=== PATIENT | female | born 1955 | race Caucasian/White ===

== ENCOUNTER → 2018-09-26 10:38 | Outpatient (CLI) | payer OTHER, SELFPAY ==
--- NOTE | 2018-09-26 10:42 | RAD_ITS ---
STUDY: X-RAY CHEST REASON FOR EXAM: Female, 62 years old. Posttussive emesis TECHNIQUE: PA and lateral views of the chest. COMPARISON: None. FINDINGS: The lungs are clear and expanded. There is no demonstrated pleural abnormality. Normal size heart. Normal mediastinum and jacqui. Normal visualized pulmonary arteries. There is atherosclerotic calcification of the aortic arch with tortuosity. Normal visualized thoracic spine. Normal visualized ribs, clavicles, and shoulders. There is no demonstrated abnormality of the visualized soft tissue structures of the upper abdomen. RAD/Chest PA and Lateral IMPRESSION: No acute cardiopulmonary process. Electronically Signed: Tiago Thomas MD at 16:19 EST , Service support ,
--- OUTSIDE RECORDS SUMMARY | 2018-11-12 01:45 | XMS RPT_ITS ---
:1955 Author Organization [facility] Care Team Providers Name Role Phone Judah Gao Attending Unavailable Judah Gao Referring Unavailable Judah Hand Primary Care Unavailable PROBLEMS PROBLEMS DATE TYPE CONDITION / CODE ATTENDING STATUS SOURCE 09/26/2018 Unknown R11.10 - Judah Gao Active Ana Vomiting, E Community unspecified / Hospital R11.10(ICD-10) Repository PROCEDURES PROCEDURES No Procedure Records FoundRESULTS RESULTS CHEST PA AND LATERAL Observed: 09/26/2018 Status: F Source: ANA 10:42 AM [facility] [place] [place] REPOS[facility]ORY [facility] Imaging Services [address] [place] [address] Chest PA and Lateral MR#: [id number] Acct: [id number] Name: EDY CLEARY Rep #: [id number] : 1955 F 62 From: Tiago Thomas MD PCP: Judah Hand MD Status: REG CLI Study: Chest PA and Lateral Date of Exam: 09/26/18 Exam# [id number] Ordering Dr: Judah Gao MD STUDY: X-RAY CHEST REASON FOR EXAM: Female, 62 years old. Posttussive emesis TECHNIQUE: PA and lateral views of the chest. COMPARISON: None. FINDINGS: The lungs are clear and expanded. There is no demonstrated pleural abnormality. Normal size heart. Normal mediastinum and jacqui. Normal visualized pulmonary arteries. There is atherosclerotic calcification of the aortic arch with tortuosity. Normal visualized thoracic spine. Normal visualized ribs, clavicles, and shoulders. There is no demonstrated abnormality of the visualized soft tissue structures of the upper abdomen. RAD/Chest PA and Lateral IMPRESSION: No acute cardiopulmonary process. Electronically Signed: Tiago Thomas MD at 16:19 EST , Service support , CC: Judah Gao MD; Judah Hand MD Director Software: Signed ALLERGIES ALLERGIES No Allergies Records FoundENCOUNTERS ENCOUNTERS ADMIT/DISCHARGE ACCOUNT ADMITTING ENCOUNTER LOCATION SOURCE NUMBER CLASS 09/26/2018 [id number] Ambulatory Ana Ana 0 [facility] ing:MTRAD Repository PAYERS PAYERS ENCOUNTER GUARANTOR PAYER SUBSCRIBER SOURCE 09/26/2018 MALACHI CLEARY Primary MALACHI Lamb Jr.[address] Insurance:Yovana Ewing: [facility] Number: [id number] [address]Lrl: ([phone] [id number] Repository [phone] () Date:[id number] [address] [place] [id number]: 09/26/2018 Secondary NOT GIVENUNK [place] Insurance:SELF PAY [facility] Number: Effective Repository Date:2018-09-26
== END ==
PROVIDERS: Family Provider Family Medicine; PCP Family Medicine; Referring Provider Family Medicine; Visit Provider Family Medicine
DX: R11.10 Vomiting, unspecified (principal)
CPT/HCPCS: 71046

== ENCOUNTER → 2019-08-13 | Outpatient (CLI) | payer OTHER, SELFPAY | END | disposition home or self-care (01) | PROVIDERS: Family Provider Family Medicine; PCP Family Medicine; Referring Provider Family Medicine; Visit Provider Family Medicine | DX: Z01.419 Encounter for gynecological examination (general) (routine) without abnormal findings (principal) ==

== ENCOUNTER → 2020-01-12 | Outpatient (CLI) | payer OTHER, SELFPAY ==
--- NOTE | 2020-01-12 11:23 | RAD_ITS ---
STUDY: X-RAY CHEST REASON FOR EXAM: Female, 64 years old. Cough TECHNIQUE: PA and lateral views of the chest. COMPARISON: Comparison is made with prior study dated September 26, 2018. FINDINGS: Hyperinflation. Scattered calcified granulomas. There is no demonstrated pleural abnormality. Normal size heart. Normal mediastinum and jacqui. Normal visualized pulmonary arteries. There is atherosclerotic tortuosity of the aortic arch and descending thoracic aorta. There are degenerative changes of the visualized thoracic spine. Normal visualized ribs, clavicles, and shoulders. There is no demonstrated abnormality of the visualized soft tissue structures of the upper abdomen. RAD/Chest PA and Lateral IMPRESSION: Hyperinflation. The lungs are clear. Electronically Signed: Allan Bailey, at 13:15 EDT , Service support ,
== END | disposition home or self-care (01) ==
LOC: MTRAD 11:21
PROVIDERS: PCP Family Medicine; Referring Provider Family Medicine; Visit Provider Family Medicine
DX: R05 Cough (principal)
CPT/HCPCS: 71046

== ENCOUNTER → 2020-04-25 | Outpatient (CLI) | payer OTHER, SELFPAY | END | disposition home or self-care (01) | LOC: MFPLAB 15:22 → LABSPEC 15:24 | PROVIDERS: PCP Family Medicine; Referring Provider Family Medicine; Visit Provider Family Medicine | DX: N39.0 Urinary tract infection, site not specified (principal) | CPT/HCPCS: 87086; 87088; 87186 ==

== ENCOUNTER → 2020-05-09 | Outpatient (CLI) | payer OTHER, SELFPAY ==
[2020-05-09 12:51] LABS: Thyroid Stim Hormone (TSH) 3.29 uIU/mL (0.358-3.74)
== END | disposition home or self-care (01) ==
PROVIDERS: PCP Family Medicine; Referring Provider Family Medicine; Visit Provider Family Medicine
DX: L65.9 Nonscarring hair loss, unspecified (principal)
CPT/HCPCS: 36415; 84443; 84481

== ENCOUNTER → 2020-08-04 | Outpatient (CLI) | payer OTHER, SELFPAY ==
--- NOTE | 2020-08-04 08:10 | BI_ITS ---
MAMMOGRAPHY - BILATERAL SCREENING REASON FOR EXAM: Female, 64 years old. Routine annual screening examination. PERTINENT HISTORY: Non-contributory. TECHNIQUE: Digital bilateral breast sophie (3D mammographic acquisition) in the CC and MLO projections. 2-D mediolateral oblique (MLO) and craniocaudad (CC) views of both breasts were obtained. CAD: Full Field Digital Mammography with Computer Added Detection was performed. COMPARISON: None. Baseline examination. FINDINGS: Breast Composition: There are scattered areas of fibroglandular density. There are no dominant masses or suspicious calcifications. No other significant abnormalities are identified. BI/SCREEN MAMM (CAD) W/SOPHIE BILAT IMPRESSION: Negative screening mammogram. Yearly followup mammogram recommended. (A) ASSESSMENT CATEGORY: BIRADS Category 1: Negative. A letter regarding these results will be sent to the patient by the facility within 30 days. Approximately 10% of breast cancers are not detected by mammography. A normal mammogram should not delay biopsy of a clinically suspicious abnormality. [id number] Electronically Signed: Allan Bailey, at 10:25 EDT , Service support ,
== END | disposition home or self-care (01) ==
LOC: OPBI 08:09
PROVIDERS: PCP Family Medicine; Referring Provider Family Medicine; Visit Provider Family Medicine
DX: Z12.31 Encounter for screening mammogram for malignant neoplasm of breast (principal)
CPT/HCPCS: 77063; 77067

== ENCOUNTER → 2020-10-04 | Outpatient (CLI) | payer OTHER, SELFPAY | END | disposition home or self-care (01) | LOC: LABSPEC 11:25 | PROVIDERS: PCP Family Medicine; Referring Provider Family Medicine; Visit Provider Family Medicine | DX: N39.0 Urinary tract infection, site not specified (principal) | CPT/HCPCS: 87077; 87086; 87088; 87186 ==

== ENCOUNTER → 2021-04-18 09:19 | Outpatient (CLI) | payer OTHER, SELFPAY ==
--- NOTE | 2021-04-18 09:23 | RAD_ITS ---
STUDY: X-RAY CHEST REASON FOR EXAM: Female, 65 years old. ACUTE BRONCHITIS TECHNIQUE: PA and lateral views of the chest. COMPARISON: Comparison is made with prior study dated 01/12/2020. FINDINGS: Hyperinflation. Scattered calcified granulomas. There is no demonstrated pleural abnormality. Normal size heart. Normal mediastinum and jacqui. Normal visualized pulmonary arteries. There is atherosclerotic tortuosity of the aortic arch and descending thoracic aorta. There are degenerative changes of the visualized thoracic spine. Normal visualized ribs, clavicles, and shoulders. There is no demonstrated abnormality of the visualized soft tissue structures of the upper abdomen. RAD/Chest PA and Lateral IMPRESSION: Hyperinflation. The lungs are clear. Electronically Signed: Allan Bailey MD at 13:05 EDT , Service support ,
== END ==
PROVIDERS: PCP Family Medicine; Referring Provider Family Medicine; Visit Provider Family Medicine
DX: J20.9 Acute bronchitis, unspecified (principal)
CPT/HCPCS: 71046

== ENCOUNTER → 2021-05-23 11:38 | Outpatient (CLI) | payer OTHER, SELFPAY ==
--- NOTE | 2021-05-23 13:00 | SP.MBSS_ITS ---
Modified Barium Swallow - Patient Information Study Date: 05/23/21 Study Time: 12:00 Direct Billable Minutes: 90 Total Minutes procedure & reportin Diagnosis: Dysphagia, unspecified (R13.10) Referring Physician: Judah Gao Reason for Referral: Objectively assess for swallow dysfunction and aspiration risk. Medical History: The patient is a 65 year old female with PMH including chronic bronchitis, COVID-19, asthma, and symptoms of reflux who was referred by her doctor for MBS study to further assess swallow function. The patient reports that she will occasionally have sensation of pharyngeal stasis after the swallow, especially with adhesive textures such as peanut butter. She also reports occasional coughing with food and drink. She has been reporting globus sensation and belching after intake, giving her concerns for acid reflux. Current Diet Ordered: Regular / Thin Dentition: Natural Teeth Mental Status: WNL Respiratory Status: Oxygenating on Room Air - Penetration-Aspiration Scale Penetration-Aspiration Scale: OBJECTIVE ASSESSMENT OF SWALLOW FUNCTION (QUANTITATIVE ? PER TRIAL): PENETRATION / ASPIRATION SCALE (BURDICK): 1 = does not enter airway 2 = enters airway/above vocal folds/ejected 3 = enters airway/above vocal folds/not ejected 4 = enters airway/contacts vocal folds/ejected 5 = enters airway/contacts vocal folds/not ejected 6 = enters airway/below vocal folds/ejected 7 = enters airway/below vocal folds/not ejected despite effort 8 = enters airway/below vocal folds/no effort VIDEOFLOROSCOPIC SCALE SCORE (BURDICK): Grade I = aspiration of material that has penetrated into the laryngeal vestibule, intact cough reflex Grade II = aspiration < 10 % of the bolus, intact cough reflex Grade III = aspiration of < 10 % of the bolus, reduced cough reflex or aspiration of > 10 % of the bolus, intact cough reflex Grade IV = aspiration of > 10 % of the bolus, reduced cough reflex - Penetration-Aspiration Scale Score Thin Liquid via teaspoon Result: 2= enter airway/above vocal folds/ejected Thin Liquid via teaspoon Trial 2 Result: 1= does not enter airway Thin Liquid via small single sip from cup Result: 1= does not enter airway Thin Liquid via sequential sips from cup Result: 2= enter airway/above vocal folds/ejected [place] Thick Liquid via small single sip from cup Result: 1= does not enter airway Honey Thick Liquid via small single sip from cup Result: 1= does not enter airway Pudding Result: 1= does not enter airway Cookie Result: 1= does not enter airway Thin Liquid via single sip from straw Result: 1= does not enter airway Thin Liquid via sequential sips from straw Result: 2= enter airway/above vocal folds/ejected Thin Liquid via small single sip from cup Trial 2 Result: 1= does not enter airway - Oral Phase Labial Seal: No Labial Escape Tongue Control During Bolus Hold: Posterior escape of less than half of bolus Bolus Preparation/Mastication: Timely and efficient chewing and mashing Bolus Transport/Lingual Motion: Delayed initiation of tongue motion Oral Residue: Residue collection on oral structures - Noted primarily with large continuous sips. Piecemeal deglutition with pudding and cookie independently cleared with second swallow. - Pharyngeal Phase Initiation of Pharyngeal Swallow: Bolus head in pyriforms Soft Palate Elevation: No bolus between soft palate and pharyngeal wall Laryngeal Elevation: Partial superior movement thyroid cart/partial apprx aryt- epig petiole Anterior Hyoid Excursion: Complete anterior movement Epiglottic Movement: Complete inversion Laryngeal Vestibule Closure at Height of Swallow: Incomplete; narrow column of air/contrast in laryngeal vestibule Pharyngeal Stripping Wave: Present - complete Pharyngoesophageal Segment Opening: Parital distension and partial duration; parital obstruction of flow Tongue Base Retraction: Narrow column of contrast between tongue base & post. pharyngeal wall Pharyngeal Residue: Collection of residue within or on pharyngeal structures - Primarily observed with continuous sips. - Esophageal Phase Esophageal Clearance: Esophageal retention w/ retrograde flow below pharyngoesophageal seg. - Treatment Strategies Effects of treatment strategies attemped:: Decreased bolus rate = Effective. - Diagnosis/Impression Diagnosis: Swallow function grossly WNL. Impression: Overall, the patient presents with a functional oropharyngeal swallow. She did present with mild deficits in bolus control with premature anterior spillage, primarily observed with thin liquid trials. She had delays initiating the pharyngeal phase of the swallow with the bolus head of thin liquids in the pyriforms. She had penetration of thin liquids trials into the laryngeal vestibule above the vocal folds with full ejection of continuous sips of thin liquids via cup and straw. She also had increased pharyngeal residue with continuous sips, which she independently cleared with a second swallow. The patient benefited from use of single sips, one at a time. The patient was observed to have significant retrograde flow of pudding and cookie contrast, which remained below the upper esophageal sphincter during the evaluation. Concerns for acid reflux due to extent of retrograde flow observed with small trials of tsp of pudding and 1/2 Xenia Doone shortbread cookie. - Recommendations Diet: Regular Textures, Thin Liquids Compensatory Strategies: Small Bites, Small Sips, Slow Rate - Sips one at a time., Sitting upright, Remain sitting upright for 30 minutes after PO intake - 60 minutes after intake. 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 Education Completed: 1. Described result of evaluation., 5. Patient demonstrates recommended strategies., 6. Family/caregivers demonstrate recommended strategies. - Status Active ST Patient: Active - Contact Information [facility] Speech Therapy:: Bianca Bray M.A. [facility]PASSEN[facility] SERVICE REPRESENTATIVE Speech-Language Pathologist [facility] [address] [place] [address] [email or web address] [phone] 05/23/21 13:20
== END ==
PROVIDERS: PCP Family Medicine; Referring Provider Family Medicine; Visit Provider Family Medicine
DX: R13.10 Dysphagia, unspecified (principal)
CPT/HCPCS: 74230; 92611

== ENCOUNTER → 2021-08-09 08:13 | Outpatient (CLI) | payer OTHER, SELFPAY ==
--- NOTE | 2021-08-09 08:14 | BI_ITS ---
MAMMOGRAPHY - BILATERAL SCREENING REASON FOR EXAM: Female, 65 years old. Routine annual screening examination. PERTINENT HISTORY: Non-contributory. TECHNIQUE: Digital bilateral breast sophie (3D mammographic acquisition) in the CC and MLO projections. 2-D mediolateral oblique (MLO) and craniocaudad (CC) views of both breasts were obtained. CAD: Full Field Digital Mammography with Computer Added Detection was performed. COMPARISON: Comparison is made with prior study 08/04/2020. FINDINGS: Breast Composition: There are scattered areas of fibroglandular density. There are no dominant masses or suspicious calcifications. No other significant abnormalities are identified. There has been no significant change since the prior study. BI/SCRN MAMM (CAD)W/SOPHIE BILAT IMPRESSION: Stable bilateral screening mammogram. Yearly follow-up mammogram recommended. (A) ASSESSMENT CATEGORY: BIRADS Category 1: Negative. A letter regarding these results will be sent to the patient by the facility within 30 days. Approximately 10% of breast cancers are not detected by mammography. A normal mammogram should not delay biopsy of a clinically suspicious abnormality. [id number] Electronically Signed: Allan Bailey MD at 12:25 EDT , Service support ,
== END ==
PROVIDERS: PCP Family Medicine; Referring Provider Family Medicine; Visit Provider Family Medicine
DX: Z12.31 Encounter for screening mammogram for malignant neoplasm of breast (principal)
CPT/HCPCS: 77063; 77067

== ENCOUNTER → 2022-06-01 | Outpatient (CLI) | payer OTHER, SELFPAY ==
--- NOTE | 2022-06-01 09:05 | RAD_ITS ---
STUDY: X-RAY - SOFT TISSUE NECK REASON FOR EXAM: Female, 66 years old. Neck pain TECHNIQUE: 2 view(s) of the neck were obtained. COMPARISON: None. FINDINGS: Normal visualized nasopharynx, oropharynx, hypopharynx. Normal epiglottis. Normal visualized subglottic tracheal air column. Normal prevertebral soft tissue structures. There are degenerative changes of the cervical spine more prominent at the C5-C6 and C6-7 levels. Loss of the normal cervical lordosis. The soft tissue structures are unremarkable. There are atherosclerotic calcifications of the left carotid bifurcation. RAD/Neck for Soft Tissue IMPRESSION: Straightening of the normal cervical lordosis with the disc space narrowing and spondylosis at the C5-C6 and C6-C7 levels. Atherosclerotic plaque formation at the bifurcation of the left carotid artery. Electronically Signed: Allan Bailey MD at 10:48 EDT ,
== END | disposition home or self-care (01) ==
PROVIDERS: PCP Family Medicine; Referring Provider Nurse Practitioner Family; Visit Provider Nurse Practitioner Family
DX: M54.2 Cervicalgia (principal)
CPT/HCPCS: 70360

== ENCOUNTER → 2022-08-10 | Outpatient (CLI) | payer OTHER, SELFPAY ==
--- NOTE | 2022-08-10 08:59 | BI_ITS ---
MAMMOGRAPHY - BILATERAL SCREENING REASON FOR EXAM: Female, 66 years old. Routine annual screening examination. PERTINENT HISTORY: Non-contributory. TECHNIQUE: Digital bilateral breast princess (3D mammographic acquisition) in the CC and MLO projections. 2-D mediolateral oblique (MLO) and craniocaudad (CC) views of both breasts were obtained. CAD: Full Field Digital Mammography with Computer Added Detection was performed. COMPARISON: Comparison is made with prior study 08/09/2021 and 08/04/2020. FINDINGS: Breast Composition: There are scattered areas of fibroglandular density. There are no dominant masses or suspicious calcifications. No other significant abnormalities are identified. There has been no significant change since the prior study. BI/SCREENING MAMM (CAD), BILAT IMPRESSION: Stable bilateral screening mammogram. Yearly follow-up mammogram recommended. (A) ASSESSMENT CATEGORY: BIRADS Category 1: Negative. A letter regarding these results will be sent to the patient by the facility within 30 days. Approximately 10% of breast cancers are not detected by mammography. A normal mammogram should not delay biopsy of a clinically suspicious abnormality. [id number] Electronically Signed: Allan Bailey MD at 10:10 EDT ,
== END | disposition home or self-care (01) ==
LOC: OPBI 08:58
PROVIDERS: PCP Family Medicine; Referring Provider Family Medicine; Visit Provider Family Medicine
DX: Z12.31 Encounter for screening mammogram for malignant neoplasm of breast (principal)
CPT/HCPCS: 77067

== ENCOUNTER → 2022-09-26 | Outpatient (CLI) | payer OTHER, SELFPAY ==
[2022-10-04 16:20] LABS: HPV APTIMA, High Risk Negative (Negative)
[2022-10-04 16:21] LABS: HPV Reflexed? YES, CHARGE PATIENT
== END | disposition home or self-care (01) ==
LOC: LABSPEC 09:56
PROVIDERS: PCP Family Medicine; Visit Provider Family Medicine
DX: Z12.4 Encounter for screening for malignant neoplasm of cervix (principal)
CPT/HCPCS: 87624; 88175; G0145

== ENCOUNTER → 2022-09-28 | Outpatient (CLI) | payer OTHER, SELFPAY ==
--- NOTE | 2022-09-28 18:03 | US_ITS ---
EXAM: US PELVIS TRANSABDOMINAL AND TRANSVAGINAL, COMPLETE CLINICAL INDICATION: hypertroph TECHNIQUE: Transabdominal and transvaginal pelvic ultrasound was performed with grayscale and color Doppler imaging. Transvaginal imaging was used for better evaluation of the endometrium and adnexa. This report was created using [employer] report generation technology. COMPARISON: None. FINDINGS: UTERUS/CERVIX: Calcifications of the fundal uterine periphery without focal lesion. Uterus measures 6.4 x 6 x 3.2 cm with endometrial thickness of 2 mm. Uterus is retroflexed. Simple fluid distended endometrial complex. No focal lesions or fibroids. RIGHT OVARY: Right ovary demonstrates blood flow to it measuring 2.0 x 1.5 x 1.2 cm. No ovarian masses or right adnexal masses. Left ovary measures 2.0 x 1.1 x 1.2 cm with no ovarian masses. No left adnexal masses. LEFT OVARY: See above. FREE FLUID: None. BLADDER: Urinary bladder has a volume 645 mL with no wall thickening or intraluminal abnormalities. US/Pelvic (Non ) IMPRESSION: 1. Small amount of simple fluid in the endometrial complex without endometrial complex thickening. This is likely benign and expected to progress over time. Could consider follow-up in 6-8 weeks to document stability. 2. Normal ovaries with no adnexal masses or free fluid. Electronically Signed: Frankie Jacobson MD at 21:23 EST ,
== END | disposition home or self-care (01) ==
LOC: US 17:58
PROVIDERS: PCP Family Medicine; Referring Provider Family Medicine; Visit Provider Family Medicine
DX: N85.2 Hypertrophy of uterus (principal)
CPT/HCPCS: 76830; 76856

== ENCOUNTER → 2023-01-22 | Outpatient (CLI) | payer OTHER, SELFPAY ==
--- NOTE | 2023-01-22 08:22 | US_ITS ---
STUDY: ULTRASOUND OF THE FEMALE PELVIS - COMPLETE REASON FOR EXAM: Female, 67 years old. endometrial fluid TECHNIQUE: Endovaginal. Transvaginal US was obtained to better visualized the ovaries. COMPARISON: 09.28.22. FINDINGS: The uterus is anteverted and is tilted to the left side of the pelvis. The uterus measures 6.7x5.3 cm. Normal uterine cervix. The endometrium measures 6mm in thickness, and is fluid distended. There is no demonstrated endometrial mass. There is calcification in the myometrial region posteriorly. I.U.D. - The patient does not have an I.U.D. The right ovary is visualized. The right ovary measures 1.9x1.5 cm. There is no right ovarian cyst or ovarian mass. There is no visualized right adnexal mass or complex lesion. There is normal arterial and normal venous vascularity. The left ovary is visualized. The left ovary measures 1.1x.8 cm. There is no left ovarian cyst or ovarian mass. There is no visualized left adnexal mass or complex lesion. There is normal arterial and normal venous vascularity. There is no fluid in the cul-de-sac. Urinary bladder volume is (in cc) 82. US/Pelvic w/ Transvaginal IMPRESSION: There is endometrial thickening. This is abnormal for the patient''s age if she is postmenopausal. Direct visualization is recommended to exclude an underlying mass. This is a persistent finding. Electronically Signed: Guillermo Villatoro MD at 16:47 EDT ,
== END | disposition home or self-care (01) ==
PROVIDERS: PCP Family Medicine; Referring Provider Nurse Practitioner Women's Health; Visit Provider Nurse Practitioner Women's Health
DX: R93.89 Abnormal findings on diagnostic imaging of other specified body structures (principal); Z78.0 Asymptomatic menopausal state
CPT/HCPCS: 76830; 76856

== ENCOUNTER → 2023-01-28 | Outpatient (CLI) | payer OTHER, SELFPAY ==
--- NOTE | 2023-01-28 13:25 | EMB_PTH ---
PATIENT: EDY CLEARY LOC: [facility] U#:[id number] AGE/SX: 67/F ROOM: RE01/28/[address]: BARBY Allen : 1955 BED: DIS: 01/28/2023 SPEC #: [id number] RECD: 01/28/23 15:17 STATUS: KEILY REFiona #: [id number] RORY: 01/28/23 13:[address]: Bella Jones NP DEPT: SURGICAL PATHOLOGY RECD BY: Rubina Olson ENTERED: 01/29/23 09:29 SP TYPE: ENDOM BX/C KRISTIN DR: Dr. Judah Gao MD Tissues: Endometrium, NOS Procedures: Surgery Specimen Level IV HEADER OPERATION: Endometrial biopsy PRE-OP DIAGNOSIS: Thickened endometrium TISSUE SUBMITTED: Endometrial tissue MICROSCOPIC DIAGNOSIS Endometrium, biopsy: Rare strips of benign superficial glandular mucosa with focal squamous metaplasia. See comment. AM:stacy 01/30/2023 COMMENT The specimen primarily consists of mucoid material. Clinical correlation is suggested. MICROSCOPIC DESCRIPTION Slides are reviewed. GROSS DESCRIPTION Received is one container labeled with the patient's name and not further designated. The specimen consists of multiple irregular fragments of mar mucoid tissue that in aggregate measure 2.0 x 1.5 x 0.1 cm. The specimen is totally submitted in one cassette. / SJ:stacy 01/29/2023 TC:5 CPT: [id number]
== END | disposition home or self-care (01) ==
LOC: LABSPEC 15:48
PROVIDERS: PCP Family Medicine; Referring Provider Nurse Practitioner Women's Health; Visit Provider Nurse Practitioner Women's Health
DX: N85.8 Other specified noninflammatory disorders of uterus (principal)
CPT/HCPCS: 88305

== ENCOUNTER → 2023-03-21 | Outpatient (CLI) | payer OTHER, SELFPAY | END | disposition home or self-care (01) | LOC: LABSPEC 11:23 | PROVIDERS: PCP Family Medicine; Referring Provider Internal Medicine Pulmonary Disease; Visit Provider Internal Medicine Pulmonary Disease | DX: R05.9 Cough, unspecified (principal) | CPT/HCPCS: 87070; 87205 ==

== ENCOUNTER → 2023-05-07 | Outpatient (CLI) | payer OTHER, SELFPAY ==
[2023-05-07 10:09] LABS: Absolute Lymphocyte Count 1.68 X10^3/uL (0.83-4.51); Absolute Neutrophil Count 2.5 X10^3/uL (2.0-7.7); Basophil# 0.08 X10^3/uL; Basophil% 1.5 % (0-1); Eosinophil# 0.63 X10^3/uL; Eosinophils% 11.7 % (0-5); Hematocrit 43.9 % (37-47); Hemoglobin 13.9 g/dL (12.0-15.0); Lymphocyte # 1.68 X10^3/ul (0.83-4.51); Lymphocyte % 31.2 % (19-41); Mean Corp Hgb Conc 31.7 g/dL (32-36); Mean Corpuscular Hgb 31.2 pg (27.0-32.0); Mean Corpuscular Volume 98.4 fL (81-99); Mean Platelet Vol. 9.5 fl (6.2-12.0); Monocyte% 9.3 % (0-10); NRBC Flagged by Analyzer 0 % (0-5); Neutrophil # 2.48 X10^3/uL (2.7-7.7); Neutrophil % 46.1 % (47-70); Platelet Count 257 K/mm3 (150-450); RBC Distribution Width CV 12.7 % (11.6-14.6); RBC Distribution Width SD 46.4 fl (35.1-43.9); Red Blood Count 4.46 M/mm3 (4.2-5.4); White Blood Count 5.4 K/mm3 (4.4-11.0)
[2023-05-07 10:10] LABS: Color, Urine Yellow (Yellow); Glucose, Dipstick Normal (Normal); Ketone-Dipstick Negative (Negative); Leukocyte Esterase-Dipstick Negative /ul (Negative); Nitrite-Dipstick Negative (Negative); Occult Blood-Urine 50 /ul (Negative); Protein-Dipstick 15 mg/dl (Negative); Urine Bilirubin Dipstick Negative (Negative); Urine Clarity Sl. Cloudy (Clear); Urine Urobilinogen Normal (Normal)
[2023-05-07 10:17] LABS: Amorphous Sediment 1+; Bacteria RARE /hpf (None Seen); Mucous, Urine RARE /hpf (<or=2+); Red Blood Cells-Urine 0-5 SEEN /hpf (0-5); Squamous Epithelial Cells - UA 0-5 SEEN /hpf (5-10); White Blood Cells 0-5 SEEN /hpf (0-5)
[2023-05-07 11:07] LABS: AST(SGOT) 16 U/L (15-37); Alanine Aminotransfer ALT/SGPT 25 U/L (13-56); Alkaline Phosphatase 84 U/L (45-117); Anion Gap 6 (5-15); BUN 12 mg/dL (7-18); BUN/Creat Ratio 15.7 RATIO (10-20); Calcium,Total 8.8 mg/dL (8.5-10.1); Chloride 107 mmol/L (98-107); Cholesterol 203 mg/dL (200); Creatinine, Serum 0.77 mg/dL (0.55-1.02); EST Glomerular Filtration Rate 80 mL/min (>60); Est Glom Filt Rate - Afr Amer 97 mL/min (>60); Globulin 4.2 g/dL (2.2-4.2); Glucose 99 mg/dL (74-106); High Density Lipoprotein 99 mg/dL; Potassium 3.7 mmol/L (3.5-5.1); Protein, Total 8.2 g/dL (6.4-8.2); Sodium Level 140 mmol/L (136-145); Thyroid Stim Hormone (TSH) 3.44 uIU/mL (0.358-3.74); Triglycerides 46 mg/dL; Very Low Density Lipoprotein 9 mg/dL (5-40)
== END | disposition home or self-care (01) ==
LOC: MTLAB 08:10
PROVIDERS: PCP Family Medicine; Referring Provider Family Medicine; Visit Provider Family Medicine
DX: I10 Essential (primary) hypertension (principal)
CPT/HCPCS: 36415; 80053; 80061; 81001; 84443; 85025

== ENCOUNTER → 2023-05-20 | Outpatient (CLI) | payer OTHER, SELFPAY ==
--- NOTE | 2023-05-20 08:28 | US_ITS ---
STUDY: ULTRASOUND OF THE FEMALE PELVIS - COMPLETE REASON FOR EXAM: Female, 67 years old. fluid in endometrial cavity LMP: Menopause TECHNIQUE: Transabdominal and Transvaginal TECHNICAL QUALITY: Adequate. COMPARISON: 01/22/2023 FINDINGS: The uterus is anteverted and is in a midline position. The uterus measures 5.9 x 4.4 x 2.8 cm. Normal uterine cervix. The endometrium measures 4 mm in thickness, and is fluid distended. There is no demonstrated endometrial mass. 2 cm round isoechoic mass in the posterior body uterus consistent with an intramural fibroid. I.U.D. - The patient does not have an I.U.D. The right ovary is visualized. The right ovary measures 2.1 x 2.3 x 1.7 cm. There is no right ovarian cyst or ovarian mass. There is no visualized right adnexal mass or complex lesion. There is normal arterial and normal venous vascularity. The left ovary is visualized. The left ovary measures 1.4 x 1.2 x 2.1 cm. There is no left ovarian cyst or ovarian mass. There is no visualized left adnexal mass or complex lesion. There is normal arterial and normal venous vascularity. There is no fluid in the cul-de-sac. The pre void volume of the bladder was ml. The post void volume of the bladder was ml. Polycystic ovary disease: No. US/Pelvic w/ Transvaginal IMPRESSION: 1. Small amount of endometrial fluid which is abnormal in a postmenopausal female. 2. 2 cm intramural fibroid. Electronically Signed: Agustin Washington MD at 23:42 EDT ,
--- NOTE | 2023-05-20 09:28 | RAD_ITS ---
STUDY: X-RAY CHEST REASON FOR EXAM: Female, 67 years old. Mild persistent asthma, uncomplicated TECHNIQUE: PA and lateral views of the chest. COMPARISON: 04/18/2021 FINDINGS: The lungs are clear and expanded. There is no demonstrated pleural abnormality. Normal size heart. Normal mediastinum and jacqui. Normal visualized pulmonary arteries. Normal visualized aortic arch and descending thoracic aorta. Normal visualized thoracic spine. Normal visualized ribs, clavicles, and shoulders. There is no demonstrated abnormality of the visualized soft tissue structures of the upper abdomen. RAD/Chest PA and Lateral IMPRESSION: Normal x-ray examination of the chest. Electronically Signed: Agustin Washington MD at 23:39 EDT ,
[2023-05-22 19:07] LABS: Cytoplasmic Ab (C-ANCA) <1:20 titer (Neg:<1:20); Immunoglobulin E 155 IU/mL (6-495)
[2023-05-23 18:08] LABS: Alternaria tenuis <0.10 kU/L (Class 0); Ash, White 0.19 kU/L (Class 0/I); Aspergillus fumigatus <0.10 kU/L (Class 0); Bermuda Grass <0.10 kU/L (Class 0); Birch <0.10 kU/L (Class 0); Black Walnut <0.10 kU/L (Class 0); Cat Hair / Dander,Stand <0.10 kU/L (Class 0); Cedar, Mountain <0.10 kU/L (Class 0); Cladosporium herbarum <0.10 kU/L (Class 0); Cockroach, American 0.43 kU/L (Class I); Cottonwood <0.10 kU/L (Class 0); D farinae Mite 2.43 kU/L (Class III); Dog Epithelia <0.10 kU/L (Class 0); Elm, American White <0.10 kU/L (Class 0); Immunoglobulin E 127 IU/mL (6-495); Maple/Box Elder <0.10 kU/L (Class 0); Mouse Urine <0.10 kU/L (Class 0); Mulberry, White <0.10 kU/L (Class 0); Oak, White <0.10 kU/L (Class 0); Pecan <0.10 kU/L (Class 0); Penicillium Notatum <0.10 kU/L (Class 0); Pigweed, Rough <0.10 kU/L (Class 0); Ragweed, Short/Common 0.12 kU/L (Class 0/I); Russian Thistle <0.10 kU/L (Class 0); Sheep Sorrel <0.10 kU/L (Class 0); Sycamore, American <0.10 kU/L (Class 0); Timothy Grass <0.10 kU/L (Class 0)
== END | disposition home or self-care (01) ==
PROVIDERS: Internal Medicine Pulmonary Disease; PCP Family Medicine; Referring Provider Nurse Practitioner Women's Health; Visit Provider Nurse Practitioner Women's Health
DX: J45.30 Mild persistent asthma, uncomplicated (principal)
CPT/HCPCS: 36415; 71046; 76830; 76856; 82785; 86003; 86256

== ENCOUNTER → 2023-07-30 | Outpatient (CLI) | payer OTHER, SELFPAY ==
[2023-07-30 08:40] LABS: Bacteria 0 SEEN /hpf (None Seen); Mucous, Urine 0 SEEN /hpf (<or=2+); White Blood Cells 0 SEEN /hpf (0-5)
[2023-07-30 10:32] LABS: Color, Urine Yellow (Yellow); Glucose, Dipstick Normal (Normal); Ketone-Dipstick 5 mg/dl (Negative); Leukocyte Esterase-Dipstick 25 /ul (Negative); Nitrite-Dipstick Negative (Negative); Occult Blood-Urine 150 /ul (Negative); Protein-Dipstick 15 mg/dl (Negative); Specific Gravity, Urine 1.015 (1.002-1.030); Urine Bilirubin Dipstick Negative (Negative); Urine Clarity Clear (Clear); Urine Urobilinogen Normal (Normal)
[2023-07-30 10:33] LABS: CRP < 2.90 mg/L (0.0-3.0)
[2023-07-30 10:37] LABS: Erythrocyte Sedimentation Rate 17 mm/hr (0-30)
[2023-07-30 10:49] LABS: Red Blood Cells-Urine 0-5 SEEN /hpf (0-5); Squamous Epithelial Cells - UA 0-5 SEEN /hpf (5-10)
== END | disposition home or self-care (01) ==
PROVIDERS: PCP Family Medicine; Referring Provider Internal Medicine Pulmonary Disease; Visit Provider Internal Medicine Pulmonary Disease
DX: J45.20 Mild intermittent asthma, uncomplicated (principal); J30.89 Other allergic rhinitis
CPT/HCPCS: 36415; 81001; 85652; 86140

== ENCOUNTER → 2023-08-14 | Outpatient (CLI) | payer OTHER, SELFPAY ==
--- NOTE | 2023-08-14 07:05 | BI_ITS ---
MAMMOGRAPHY - BILATERAL SCREENING REASON FOR EXAM: Female, 67 years old. Routine annual screening examination. PERTINENT HISTORY: Non-contributory. TECHNIQUE: Digital bilateral breast sophie (3D mammographic acquisition) in the CC and MLO projections. 2-D mediolateral oblique (MLO) and craniocaudad (CC) views of both breasts were obtained. CAD: Full Field Digital Mammography with Computer Added Detection was performed. COMPARISON: Comparison is made with prior study August 10, 2022 and August 09, 2021. FINDINGS: Breast Composition: There are scattered areas of fibroglandular density. There are no dominant masses or suspicious calcifications. No other significant abnormalities are identified. There has been no significant change since the prior study. BI/SCRN MAMM (CAD)W/SOPHIE BILAT IMPRESSION: Stable bilateral screening mammogram. Yearly follow-up mammogram recommended. (A) ASSESSMENT CATEGORY: BIRADS Category 1: Negative. A letter regarding these results will be sent to the patient by the facility within 30 days. Approximately 10% of breast cancers are not detected by mammography. A normal mammogram should not delay biopsy of a clinically suspicious abnormality. [id number] Electronically Signed: Allan Bailey MD at 8:50 EDT ,
== END | disposition home or self-care (01) ==
PROVIDERS: PCP Family Medicine; Referring Provider Family Medicine; Visit Provider Family Medicine
DX: Z12.31 Encounter for screening mammogram for malignant neoplasm of breast (principal)
CPT/HCPCS: 77063; 77067

== ENCOUNTER → 2023-10-31 | Outpatient (CLI) | payer OTHER, SELFPAY ==
--- NOTE | 2023-10-31 13:12 | RAD_ITS ---
INDICATION: ACTIVE ASTHMA EXAMINATION/TECHNIQUE: X-RAY - XR Sinuses Paranasal 3 Views COMPARISON: FINDINGS: There is no significant mucosal thickening. There are no air-fluid levels. The regional bones are grossly intact. RAD/Sinuses min 3 Views IMPRESSION: Negative sinus series. Electronically Signed: Román Colmenares DO at 18:20 EST ,
== END | disposition home or self-care (01) ==
LOC: RAD 13:05
PROVIDERS: PCP Family Medicine; Referring Provider Internal Medicine Rheumatology; Visit Provider Internal Medicine Rheumatology
DX: J45.909 Unspecified asthma, uncomplicated (principal)
CPT/HCPCS: 70220

== ENCOUNTER → 2023-11-26 | Outpatient (CLI) | payer OTHER, SELFPAY ==
--- NOTE | 2023-11-26 14:04 | CT_ITS ---
STUDY: CT CHEST WITHOUT CONTRAST REASON FOR EXAM: Female, 67 old. Asthma. Hypertension. RADIATION DOSAGE (If Supplied By Facility): CTDIvol = ( 7.46 ) mGy, DLP = ( 297.46 ) mGycm TECHNIQUE: Transaxial imaging was performed without the administration of intravenous contrast material. Individualized dose optimization techniques were used for this CT. COMPARISON: Comparison is made with prior chest radiograph dated May 20, 2023. FINDINGS: CHEST Calcified granuloma in the left lower lobe. There is no demonstrated pleural abnormality. There are calcifications of the coronary arteries. Calcified subcarinal lymph nodes. Calcified right hilar lymph nodes. Normal unenhanced pulmonary arteries. There is atherosclerotic calcification of the aortic arch. There are mild degenerative changes of the thoracic spine. There is no demonstrated abnormality of the visualized upper abdomen. CT/Chest without Contrast IMPRESSION: No acute abnormality is seen. Coronary artery calcification. Electronically Signed: Allan Bailey MD at 15:20 EST ,
--- OUTSIDE RECORDS SUMMARY | 2023-11-26 18:51 | XMS RPT_ITS | CCD ---
Author Name Unknown Address [address] [place] [address] Organization [facility] Care Team Providers Care Donor Services Manager Name Role Phone Marlena Ahn Curry Unavailable Augusto Otoole Unavailable Farooq Edge MD Primary Care Provider DYLAN QUINTERO Referring Unavailable FAROOQ EDGE Primary Care Unavailable DYLAN QUINTERO Referring Unavailable FAROOQ EDGE Primary Care Unavailable DYLAN QUINTERO Attending Unavailable Allergies Allergy Classification Reported Allergen(s) Allergy Type Date of Onset Reaction(s) Facility (3 sources) montelukast; Translations: [MONTELUKAST] Drug Allergy 11-25-2023 Mental Status Change [facility] Medications Completed/Discontinued Medications Medication Drug Class(es) Dates Sig (Normalized) Sig (Original) amLODIPine 10 mg oral tablet (2 sources) Dihydropyridine Calcium Channel Tj Start: 09-24-2023 take 1 tablet by mouth once amLODIPine (NORVASC) 10 mg tablet Take 1 tablet by mouth every afternoon. 0 09/24/2023 Active Problems Problem Classification Problem Date Documented Da te Episodic/Chronic Neoplasms of unspecified nature or uncertain behavior (3 sources) Lambda light chain disease; Translations: [Monoclonal gammopathy] Onset: 11-25-2023 11-25-2023 Chronic Results Test Name Value Interpretation Reference Range Facil ity Vital Signs Date Time Vital Sign Value Performing Clinician Gill torres 11-25-2023 13:44-0500 Body height 175 cm Dylan Quintero DO Work Phone: [facility] 11-25-2023 13:44-0500 Body temperature 98.49 [degF] Dylan Quintero DO Work Phone: [facility] 11-25-2023 13:44-0500 Body weight 90.27 kg Dylan Quintero DO Work Phone: [facility] 11-25-2023 13:44-0500 Diastolic blood pressure 84 mm[Hg] Dylan Quintero DO Work Phone: [facility] 11-25-2023 13:44-0500 Heart rate 104 /min Dylan Quintero DO Work Phone: [facility] 11-25-2023 13:44-0500 SaO2% (BldA) [Mass fraction] 97 % Dylan Quintero DO Work Phone: [facility] 11-25-2023 13:44-0500 Systolic blood pressure 171 mm[Hg] Dylan Quintero DO Work Phone: [facility] Encounters Encounter Date Encounter Type Care Provider Facility Start: 11-25-2023 End: 11-26-2023 ambulatory DYLAN Alisson FABIAN Facility:[facility] Start: 11-25-2023 End: 11-25-2023 Subsequent hospital visit by physician Xr [facility] Zainab Glass Work Phone: Radiology Plan of Treatment Date Care Activity Detail Author Start: 08-13-2029 Urine microalbumin profile DTaP,Tdap,Td Vaccine (2 - Td or Tdap) [facility] Start: 11-25-2026 Diabetes Screening Diabetes Screenin g [facility] Start: 11-25-2023 End: 02-24-2024 KAPPA/MALAGON,FREE,SER [facility] Work Phone: Immunizations Immunization Date Immunization Notes Care Provider Jorge vega 08-13-2019 influenza virus vacc ine, unspecified formulation Dylan Quintero DO Work Phone: [facility] Payers Date Payer Category Payer Private Health Insurance [facility] UMR CHOICE PLUS [id number] 2020-Present [phone] [address] [address] [place] [address] HMO [id number] 2020 Unknown [id number] Social History Date Type Detail Facility Start: 11-25-2023 Tobacco smoking stat us NHIS Never smoked tobacco [facility] Start: 11-25-2023 Tobacco use and exposure Smokeless t obacco non-user [facility] Start: 11-25-2023 Alcohol intake Current drinke r of alcohol (finding) [facility] Start: 11-25-2023 History of Social function [facility] Start: 11-25-2023 Tobacco use panel [facility] National Score (1-10 0), lower number is lower risk 75 [facility] Start: 11-25-2023 Alcohol Comment once a year [facility] Start: 1955 Sex Assigned At Female C [facility] Start: 11-19-2023 Gender identity Identifies as female gender (finding) [facility] Progress note 11-25-2023 Note Date & Type Note Facility 11-25-2023 Note HNO ID: [id number] Author: LUPE COSTA RT(R) Service: ? Author Type: Test Driver Type: Progress Notes Filed: 11/25/2023 16:41 Note Text: Radiology Service Progress Note PATIENT NAME: Edy Smith DATE OF SERVICE: November 25, 2023 TIME: 3:59 PM PATIENT IDENTITY VERIFICATION COMPLETED USING TWO (2) IDENTIFIERS: Name and Date of confirmed by patient verbally. FALL SCREENING: Has the patient had 2 falls in the last year or 1 fall with injury or currently using an Ambulatory Assistive Device (Walker, Cane, Wheelchair, Crutches, etc.)? No PATIENT GENDER DATA: Female. status: : No status: NO. PATIENT RELEVANT IMPLANT DATA REVIEWED: Yes PATIENT PRESENTS WITH AN IMPLANTABLE OR ATTACHED SURGICAL SPECIALIST: No RADIOLOGY DEPARTMENT: General X-ray: Exam(s) Completed: Bone Survey PERIPHERAL IV DATA: Not applicable SIGNED BY: RT Wendy(R) November 25, 2023 3:59 PM [facility] History of Present illness Narrative 11-25-2023 Lupe Costa RT(R) - 11/25/2023 3:50 PM EST Note Date & Type Note Facility 11-25-2023 History of Presen t illness Narrative Radiology Service Progress Note PATIENT NAME: Edy Smith DATE OF SERVICE: November 25, 2023 TIME: 3:59 PM PATIENT IDENTITY VERIFICATION COMPLETED USING TWO (2) IDENTIFIERS: Name and Date of confirmed by patient verbally. FALL SCREENING: Has the patient had 2 falls in the last year or 1 fall with injury or currently using an Ambulatory Assistive Device (Walker, Cane, Wheelchair, Crutches, etc.)? No PATIENT GENDER DATA: Female. status: : No status: NO. PATIENT RELEVANT IMPLANT DATA REVIEWED: Yes PATIENT PRESENTS WITH AN IMPLANTABLE OR ATTACHED SURGICAL SPECIALIST: No RADIOLOGY DEPARTMENT: General X-ray: Exam(s) Completed: Bone Survey PERIPHERAL IV DATA: Not applicable SIGNED BY: RT Wendy(R) November 25, 2023 3:59 PM documented in this encounter [facility] Progress note 11-25-2023 Note Date & Type Note Facility 11-25-2023 Note HNO ID: [id number] Author: DYLAN QUINTERO, DO Service: ? Author Type: Physician Type: Progress Notes Filed: 11/25/2023 14:48 Note Text: Patient referred by Dr. Edge for monoclonal gammopathy. The impression and plan will be communicated by way of the shared electronic record or faxed under separate cover letter. 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 Evidently biopsy showed benign findings. Family h/o asthma. No childhood asthma. Started noticing wheezing about 2-3 years ago. Has long history of sinus drainage with occasional sinusitis. Seasonal allergies. Referred to Dr. Mendiola about 3 years ago. Referred to Dr. Otoole at [facility] for evaluation of abnormal test results. Dr. Otoole obtained labs--a finding of an IgG lambda monoclonal protein on 11/06/2023. A CBC showed a normal total white count with an unremarkable differential. Hemoglobin was 13.7 g/dL and the platelet count was 258,000. Eos were normal. Serum chemistries showed a serum CK of 82. A serum creatinine of 0.7 mg/dL. A GFR of 89.3 cc/min. Uric acid normal at 3.2 mg/dL. UA with microscopic analysis demonstrated no protein or glucose. Hemoglobin/blood was quantitated at 3+. Microscopic analysis showed 15-20 red blood cells and 0-5 high-powered field. White blood cells were 1-2 per high-powered field. No bacteria observed. Patient was noted to have a positive p-ANCA. Also was noted to have positive MPO. CRP and sed rate were normal. Rheumatoid factor and CCP were negative. Feels well in general. Qvar BID for about a year-- helps a lot. Hasn't needed rescue inhaler. Had Covid not requiring hospitalization about 2 years ago. First noted dark urine then--has since looked normal and has not had gross hematuria (with exception of UTIs in the past). 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 Had x-rays. Chronic neck pain due to degenerative changes. Several years ago saw chiropractor for hip pain (has since resolved). Recalls having manipulation right arm/shoulder--right thumb tip numb since. No other sensory neuropathy symptoms. Previous shingles left groin. PAST MEDICAL HISTORY Diagnosis Date Asthma Essential hypertension PAST SURGICAL HISTORY Procedure Laterality Date LIGATE FALLOPIAN TUBE 1988 ALLERGIES Allergen Reactions Singulair [Monteluk* Mental Status Change Current Outpatient Medications Medication Sig amLODIPine (NORVASC) 10 mg tablet Take 1 tablet by mouth every afternoon. QVAR REDIHALER 80 mcg/actuation inhaler Inhale 2 Puffs as instructed two times a day. No current facility-administered medications for this visit. 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 Family History Problem Relation Age of Onset Heart Mother other (cancer eye) Mother other (phlebitis) Mother Diabetes Father Arthritis Brother Colon Cancer Maternal Grandmother Diabetes Maternal Grandfather Colon Cancer Paternal Grandmother Hypertension Paternal Grandfather ROS: Constitutional: No fever. No drenching night sweats. Normal appetite. No unexplained weight loss. No significant fatigue. Neuro: No recent MURRAY, vertigo, dizziness or imbalance. HEENT: No recent change in voice, vision or hearing. Resp: See above. CVS: No exertional chest pain, PND or orthopnea. No extremity swelling/edema. No symptoms of claudication. No painful or tender varicose veins. GI: No dysphagia or odynophagia. No reflux, n/v, change in bowel habits. No abdominal pain, bloating or distension. No black or bloody stools. : See above. Endo: No hot flashes. No polyuria or polydipsia. No heat or cold intolerance. Musculoskeletal: See above. Derm: No current rash. No history of jaundice. No diffuse pruritis. Heme: No unusual bleeding and unexplained bruising. Psych: Normal mood. PHYSICAL EXAM: Vitals: Blood pressure 171/84, pulse 104, temperature 36.9 ?C (98.5 ?F), height 175 cm (5' 8.9 ), weight 90.3 kg (199 lb), SpO2 97%. Well-appearing and in no acute distress. EYES: Sclerae are anicteric bilaterally. ENT: Oral mucosa is unremarkable. There is no sign of thrush or mucositis. Tongue appears healthy. LYMPHATIC: There is no palpable cervical, supraclavicular, axillary or inguinal adenopathy. RESPIRATORY: Inspiratory breath sounds are of normal intensity in all burgos. No rales, wheezes or rhonchi CARDIOVASCULAR: Rhythm is regular. Normal intensity S1/S2. No murmur. Varicose veins b/l legs. ABDOMEN: The abdomen is nondistended. No splenomegaly (more content not included)... [facility] History of Present illness Narrative 11-25-2023 Dylan Quintero DO - 11/25/2023 1:39 PM EST Note Date & Type Note Facility 11-25-2023 History of Presen t illness Narrative Patient referred by Dr. Edge for monoclonal gammopathy. The impression and plan will be communicated by way of the shared electronic record or faxed under separate cover letter. 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 Evidently biopsy showed benign findings. Family h/o asthma. No childhood asthma. Started noticing wheezing about 2-3 years ago. Has long history of sinus drainage with occasional sinusitis. Seasonal allergies. Referred to Dr. Mendiola about 3 years ago. Referred to Dr. Otoole at [facility] for evaluation of abnormal test results. Dr. Otoole obtained labs--a finding of an IgG lambda monoclonal protein on 11/06/2023. A CBC showed a normal total white count with an unremarkable differential. Hemoglobin was 13.7 g/dL and the platelet count was 258,000. Eos were normal. Serum chemistries showed a serum CK of 82. A serum creatinine of 0.7 mg/dL. A GFR of 89.3 cc/min. Uric acid normal at 3.2 mg/dL. UA with microscopic analysis demonstrated no protein or glucose. Hemoglobin/blood was quantitated at 3+. Microscopic analysis showed 15-20 red blood cells and 0-5 high-powered field. White blood cells were 1-2 per high-powered field. No bacteria observed. Patient was noted to have a positive p-ANCA. Also was noted to have positive MPO. CRP and sed rate were normal. Rheumatoid factor and CCP were negative. Feels well in general. Qvar BID for about a year-- helps a lot. Hasn't needed rescue inhaler. Had Covid not requiring hospitalization about 2 years ago. First noted dark urine then--has since looked normal and has not had gross hematuria (with exception of UTIs in the past). 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 Had x-rays. Chronic neck pain due to degenerative changes. Several years ago saw chiropractor for hip pain (has since resolved). Recalls having manipulation right arm/shoulder--right thumb tip numb since. No other sensory neuropathy symptoms. Previous shingles left groin. PAST MEDICAL HISTORY Diagnosis Date Asthma Essential hypertension PAST SURGICAL HISTORY Procedure Laterality Date LIGATE FALLOPIAN TUBE 1988 ALLERGIES Allergen Reactions Singulair [Monteluk* Mental Status Change Current Outpatient Medications Medication Sig amLODIPine (NORVASC) 10 mg tablet Take 1 tablet by mouth every afternoon. QVAR REDIHALER 80 mcg/actuation inhaler Inhale 2 Puffs as instructed two times a day. No current facility-administered medications for this visit. 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 Family History Problem Relation Age of Onset Heart Mother other (cancer eye) Mother other (phlebitis) Mother Diabetes Father Arthritis Brother Colon Cancer Maternal Grandmother Diabetes Maternal Grandfather Colon Cancer Paternal Grandmother Hypertension Paternal Grandfather ROS: Constitutional: No fever. No drenching night sweats. Normal appetite. No unexplained weight loss. No significant fatigue. Neuro: No recent MURRAY, vertigo, dizziness or imbalance. HEENT: No recent change in voice, vision or hearing. Resp: See above. CVS: No exertional chest pain, PND or orthopnea. No extremity swelling/edema. No symptoms of claudication. No painful or tender varicose veins. GI: No dysphagia or odynophagia. No reflux, n/v, change in bowel habits. No abdominal pain, bloating or distension. No black or bloody stools. : See above. Endo: No hot flashes. No polyuria or polydipsia. No heat or cold intolerance. Musculoskeletal: See above. Derm: No current rash. No history of jaundice. No diffuse pruritis. Heme: No unusual bleeding and unexplained bruising. Psych: Normal mood. PHYSICAL EXAM: Vitals: Blood pressure 171/84, pulse 104, temperature 36.9 C (98.5 F), height 175 cm (5' 8.9 ), weight 90.3 kg (199 lb), SpO2 97%. Well-appearing and in no acute distress. EYES: Sclerae are anicteric bilaterally. ENT: Oral mucosa is unremarkable. There is no sign of thrush or mucositis. Tongue appears healthy. LYMPHATIC: There is no palpable cervical, supraclavicular, axillary or inguinal adenopathy. RESPIRATORY: Inspiratory breath sounds are of normal intensity in all burgos. No rales, wheezes or rhonchi CARDIOVASCULAR: Rhythm is regular. Normal intensity S1/S2. No murmur. Varicose veins b/l legs. ABDOMEN: The abdomen is nondistended. No splenomegaly or hepatomegaly. No tenderness. Extremities: No swelling or edema. SKIN: No jaundice. No petechiae. NEUROLOGIC: sash finisher II-XII are grossly intact. No focal motor weakness. DTRs are symmetric and normal. MUSCULOSKELETAL: No joint swelling or tenderness. No muscle wasting. ASSESSMENT/PLAN: (D47.2) IgG lambda monoclonal gammopathy (primary encounter diagnosis) Assessment: -The patient is a 67-year-old female who has been under the care of Dr. Mendiola for asthma. Recently found to have positive test for p-ANCA and MPO. Referred to Dr. Rapp who on laboratory workup found she had an IgG lambda monoclonal protein. -We discussed the spectrum of plasma cell dyscrasias and the basic workup. Plan: -CBC, CMP, serum protein electrophoresis and immunofixation, LDH, VEGF, uric acid, beta-2 microglobulin today. -24-hour urine collection for protein electrophoresis and immunofixation. -Whole-body bone survey today. -Office visit following above. I spent a total of 60 minutes on the date of the service which included preparing to see the patient, [id number] patient care, completing clinical documentation, obtaining and/or reviewing separately obtained history, performing a medically appropriate examination, counseling and educating the patient/family/caregiver, ordering medications, tests, or procedures, communicating with other HCPs (not separately reported), and communicating results to the patient/family/caregiver. Dylan Quintero DO documented in this encounter [facility] Evaluation note Note Date & Type Note Facility documented in this encounter [facility] Evaluation note Note Date & Type Note Facility documented in this encounter [facility] Reason for referral (narrative) Diagnostic Procedure Only (Routine) - Closed Note Date & Type Note Facility Referral ID Status Reason Start Date Expiration Date V isits Requested Visits Authorized [id number] Closed Auto-Generate d Referral 11/25/2023 12/24/2024 1 1 [facility] Reason for visit Narrative Diagnostic Procedure Only (Routine) - Closed Note Date & Type Note Facility Referral ID Status Reason Start Date Expiration Date V isits Requested Visits Authorized [id number] Closed Auto-Generate d Referral 11/25/2023 12/24/2024 1 1 [facility] Summary Purpose Family History No Family History Records Found Advance Directives No Advanced Directives Records Found Additional Source Comments Source Comments (unrecognize d section and content) In the event this informatio n is protected by the Federal Confidentiality of Alcohol and Drug Abuse Patient Records regulations: The Federal rules restrict any use of the information to criminally investigate or prosecute any alcohol or drug abuse patient.[facility] the event this information is protected by the Federal Confidentiality of Alcohol and Drug Abuse Patient Records regulations: The Federal rules restrict any use of the information to criminally investigate or prosecute any alcohol or drug abuse patient.[facility] Reason for Visit (unrecogniz ed section and content) Care Teams (unrecognized sec tion and content) Donor Services Manager Relationship Specialty Start Date End Date Farooq Edge MD [address] [place], [place] [address] PCP - General Family Medicine 11/25/23 Curry Mendiola V [address] [place] [address] Internal Medicine 11/25/23 Augusto Otoole [address] [place] [address] Rheumatology 11/25/23 INFORMATION SOURCE (unrecogn ized section and content) FOR RECORDS PERTAINING TO PATIENTS WHO ARE OR HAVE BEEN ENROLLED IN A CHEMICAL DEPENDENCY/SUBSTANCEABUSE PROGRAM, SOME INFORMATION MAY BE OMITTED. This clinical summary was aggregated from multiple sources. Caution should be exercised in using it in the provision of clinical care. This summary normalizes information from multiple sources, and as a consequence, information in this document may materially change the coding, format and clinical context of patient data. In addition, data may be omitted in some cases. CLINICAL DECISIONS SHOULD BE BASED ON THE PRIMARY CLINICAL RECORDS. [employer] provides no warranty or guarantee of the accuracy or completeness of information in this document.
== END | disposition home or self-care (01) ==
PROVIDERS: PCP Family Medicine; Referring Provider Internal Medicine Pulmonary Disease; Visit Provider Internal Medicine Pulmonary Disease
DX: R06.00 Dyspnea, unspecified (principal)
CPT/HCPCS: 71250

== ENCOUNTER → 2024-01-30 | Outpatient (CLI) | payer OTHER, SELFPAY ==
[2024-01-30] VITALS (15 sets, daily range): BP systolic 106–152; BP diastolic 45–74; PULSE 73–83; RESP 12–18; TEMP 36.6; O2SAT 94–100; BMI 29.5
--- NOTE | 2024-01-30 | IMM_PTH ---
PATIENT: EDY CLEARY LOC: CT U#:[id number] AGE/SX: 68/F ROOM: RE01/30/[address]: Dr. Dylan Quintero DO : 1955 BED: DIS: 01/30/2024 SPEC #: [id number] RECD: 01/31/24 11:33 STATUS: KEILY REQ #: [id number] RORY: 01/30/24 00:[address]: Dylan Quintero DEPT: IMMUNOHISTOCHEMISTRY RECD BY: Filipe Vital ENTERED: 01/31/24 11:33 SP TYPE: IMMUNO OTHR DR: Dr. Judah Gao MD Tissues: B - Bone marrow of iliac crest Procedures: CD138 (add) KAPPA (add) LAMBDA (add) CD45 (initial) PHYSICIAN & INSTITUTION [place] [id number] SPECIMEN INFORMATION: Tissue Source: B- Bone marrow clot Clinical Info: Myeloma smoldering myelan Specimen Number: [id number] CPT code: 48597,72988i5 METHODOLOGY: Deparaffinized sections of prefer/formalin-fixed tissue or PAP/DQ stained slides are incubated with monoclonal/polyclonal antibodies/oligonucleotide probes. Localization is made via biotin free immunoperoxidase method. Appropriate controls are performed and reacted as expected. Results on target cell population are indicated in the following table: RESULTS: ANTIBODY / CLONE RESULT Block B CD45 (RP2/18) positive, focal (in lymphocytes) CD138 (B-A38) positive, a few cells Rewey (polyclonal) negative Lambda (polyclonal) positive These tests were developed and their performance characteristics determined by [facility]. They may not have been cleared or approved by the U.S. Food and Drug Administration. The FDA has determined that such clearance or approval is not necessary. The above immunohistochemical/dualISH markers are ordered and reviewed by the Pathologist. INTERPRETATION: B. Bone marrow clot: A few plasma cells with lambda monoclonality noted. SJ/mr 02/05/2024
--- NOTE | 2024-01-30 | BMB_PTH ---
PATIENT: EDY CLEARY LOC: CT U#:[id number] AGE/SX: 68/F ROOM: RE01/30/[address]: Dr. Dylan Quintero DO : 1955 BED: DIS: 01/30/2024 SPEC #: [id number] RECD: 01/30/24 11:09 STATUS: KEILY MONTY #: [id number] RORY: 01/30/24 00:[address]: Dylan Quintero DEPT: BONE MARROW RECD BY: Rubina Olson ENTERED: 01/30/24 11:09 SP TYPE: BMB OTHR DR: Dr. Judah Gao MD Tissues: A - Bone marrow, NOS B - Bone marrow, NOS C - Bone marrow, NOS Procedures: Decalcification bone/plaque Bone Marrow Aspiration Bone Marrow Core Biopsy Iron Stain Bone Marrow HEADER OPERATION: Ct guided bone marrow biopsy PRE-OP DIAGNOSIS: Myeloma smoldering myelan TISSUE SUBMITTED: A - Core, B - Clot, C - Smears, and send outs (flow, cytogenetics) BONE MARROW DIAGNOSIS Bone marrow core, clot and aspirate smears: Normocellular marrow with trilineage hematopoiesis. 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 See comment. SJ/mr 02/05/24 COMMENT B. Immunohistochemistry ([id number]) supports the above diagnosis. Plasma cells comprise ~3% of total nucleated cell population. [facility] minute plasma cell population (<0.1% of the nonerythroid cells) with lambda restriction. No monoclonal population is detected. There is no loss of, or aberrant expression of lawton T-cell antigen. Myeloblast comprise 0.4% of the total cell analyzed. Complete report is viewable in patient's EMR. This case has been reviewed in consultation with Dr. Gnog who concurs with the above diagnosis. BONE MARROW STUDY Slides are reviewed. CBC DATE: 01/30/24 WBC 5.2; RBC 4.41; HGB 13.6; HCT 42.1; MCV 95.5; RDW 12.6; PLTS 258,000 SEGS 51.2%; LYMPHS 31.2%; MONOS 8.9%; EOS 6.8%; BASOS 1.7% PERIPHERAL SMEAR: Submitted. RBC: Normocytic and normochromic. WBC: Unremarkable. The WBC count is compatible to as reported above. PLTS: Adequate. BONE MARROW ASPIRATE DIFFERENTIAL: 200 cell count. Blasts % (normal 0-2): 0 Promyelocytes % (normal 1-5): 0 Myelocytes and metamyelocytes % (normal 17-41): 18 Bands and Segs % (normal 15-32): 36 Eos % (normal 1-6): 5 Basos % (normal 0-1): 0 Monocytes % (normal 0-4): 0 Erythroid Precursors % (normal 17-35): 29 Lymphocytes % (normal 7-13): 9 Plasma Cells % (normal 0-2): 3 ASPIRATE FINDINGS: Site: Not specified Paucispicular Cellular M/E ratio: 2.0 (Normal 1.5-4.0) Megakaryocytes: Present and normal morphology. Erythropoiesis: Normoblastic. Granulopoiesis: Progressive and unremarkable. Comment: Minute population of mature plasma cells are noted. Immature plasma cells are not seen. CORE BIOPSY FINDINGS: Site: Not specified Adequacy: Insufficient Comment: This specimen only consists of peripheral blood mixed with hematopoietic cells. ASPIRATE CLOT FINDINGS: Site: Not specified Marrow particles: Numerous Cellularity: 40% M/E ratio: Within normal limits. Megakaryocytes: Present and adequate in number. Granulomas: Absent. Lymphoid aggregates: Absent. Atypical infiltrates: present, a few plasma cells noted. Comment: Immunohistochemistry ([id number]) show a few plasma cells with lambda monoclonality. SPECIAL STAINS WITH MATCHED CONTROLS: Iron: Absent Reticulin: No significant increase of reticulin fibers is noted. PAS: Highlights myeloid cells and megakaryocytes. BONE MARROW GROSS A - Received is a container labeled with the patient's name and designated bone marrow. The specimen consists of multiple blood clots with possible fragments of bone measuring in aggregate 1.5 x 1.5 x 0.1 cm. The specimen is totally submitted in one cassette after decalcification. B - Received labeled with the patient's name and designated bone marrow is a specimen that consists of approximately 2 ml of bloody fluid that on filtration yields multiple minute fragments of blood clots measuring in aggregate 2.0 x 1.5 x 0.1 cm. The specimen is totally submitted in one cassette. C - Also received are 15 unstained and 1 peripheral stained slides. The unstained slides are submitted for appropriate staining. Also received are 1 green top tube which are sent to our reference lab for flow and cytogenetics. GLENN/ 01/30/24 TC:5 CPT: 35367, 86659, 95012 x2, 89220 x3, 12142 ADDENDUM ADDENDUM ADDENDUM ADDENDUM ADDENDUM ADDENDUM ADDENDUM ADDENDUM 02/10/2024 10:13 ADDENDUM 02/10/2024 10:13 ADDENDUM 02/10/2024 10:13 ADDENDUM 02/10/2024 10:13 ADDENDUM 02/10/2024 10:13 [facility] CYTOGENETIC RESULT: 46, XX (20) INTERPRETATION: Normal female karyotype was observed in twenty metaphases analyzed. Please see complete report in e-chart or EMR
[2024-01-30 08:21] LABS: Absolute Lymphocyte Count 1.61 X10^3/uL (0.83-4.51); Absolute Neutrophil Count 2.6 X10^3/uL (2.0-7.7); Basophil# 0.09 X10^3/uL; Basophil% 1.7 % (0-1); Eosinophil# 0.35 X10^3/uL; Eosinophils% 6.8 % (0-5); Hematocrit 42.1 % (37-47); Hemoglobin 13.6 g/dL (12.0-15.0); Lymphocyte # 1.61 X10^3/ul (0.83-4.51); Lymphocyte % 31.2 % (19-41); Mean Corp Hgb Conc 32.3 g/dL (32-36); Mean Corpuscular Hgb 30.8 pg (27.0-32.0); Mean Corpuscular Volume 95.5 fL (81-99); Mean Platelet Vol. 9.1 fl (6.2-12.0); Monocyte# 0.46 X10^3/uL; Monocyte% 8.9 % (0-10); NRBC Flagged by Analyzer 0 % (0-5); Neutrophil # 2.64 X10^3/uL (2.7-7.7); Neutrophil % 51.2 % (47-70); Platelet Count 258 K/mm3 (150-450); RBC Distribution Width CV 12.6 % (11.6-14.6); RBC Distribution Width SD 44.3 fl (35.1-43.9); Red Blood Count 4.41 M/mm3 (4.2-5.4); White Blood Count 5.2 K/mm3 (4.4-11.0)
[2024-01-30] MEDS: 0.9% Normal Saline (250mL Bag) 250 ML 15 ML IV (09:03)
[2024-01-30] MEDS: Midazolam 2 MG/2 ML Syringe IV ×3 (09:04→09:20)
[2024-01-30] MEDS: fentaNYL 100 MCG/2 ML Ampul IV ×2 (09:06→09:21)
[2024-01-30] MEDS: Lidocaine 2% (20 ml mdv) 20 ML Vial INFILT (09:18)
--- NOTE | 2024-01-30 10:21 | PCM.OP.PRO ---
Procedure Report Date of Procedure: 01/30/24 Assessment & Plan Assessment/Plan (1) IgG lambda monoclonal gammopathy: PLAN: PROCEDURE: CT guided bone marrow biopsy and aspiration of the left iliac bone ORDERING PROVIDER: Dr. Quintero INDICATION: Female, 68 years old. IgG lambda monoclonal gammopathy. PROVIDER: Debra Flynn APRN-[employer] HELPER RADIATION DOSAGE (If Supplied By Facility): CTDIvol = 22 mGy, DLP = 593.60 mGycm. Individualized dose optimization techniques were utilized. CONSENT: The risks, benefits, and alternatives to the procedure were explained to the patient. The specific risk of hemorrhage requiring further treatment or intervention was detailed and accepted. Follow-up instructions were discussed with the patient as well. Written informed consent was obtained. PRE-PROCEDURE SEDATION ASSESSMENT: Current history and physical dictated by referring physician and reviewed. No clinical changes since date of exam. Patient has an ASA Class of 2. PROCEDURAL SEDATION PROTOCOL: The Drugs used were: 3 mg Versed, IV, and 100 mcg Fentanyl, IV. The sedation time was: 29 minutes, starting at 9:04 AM and terminated at 9:33 AM. The procedural sedation protocol was independently monitored by the department nurse. TECHNIQUE The patient was brought into the CT suite and placed in the prone position. An appropriate entry site was identified. The overlying skin was prepped and draped in the usual sterile fashion. 2% lidocaine was administered subcutaneously for local anesthesia. Under CT guidance, a bone marrow biopsy and bone marrow aspirate were performed of the left iliac bone using an 11-gauge bone marrow biopsy kit. Hematology staff was present to prepare the specimen slides and transport the specimen to the laboratory for analysis. Hemostasis was obtained, and a sterile occlusive dressing was applied. The patient tolerated the procedure well without immediate complications. IMPRESSION: Successful CT guided bone marrow biopsy and aspiration of the left iliac bone as described. Procedural Sedation protocol utilized with independent monitoring by the department nurse. Procedures Radiology Radiology CT Procedures: 32464 Biopsy Bone Marrow
== END | disposition home or self-care (01) ==
PROVIDERS: Nurse Practitioner Acute Care; PCP Family Medicine; Referring Provider Internal Medicine Hematology & Oncology; Visit Provider Internal Medicine Hematology & Oncology
DX: Z01.818 Encounter for other preprocedural examination (principal); D47.2 Monoclonal gammopathy; D75.9 Disease of blood and blood-forming organs, unspecified
CPT/HCPCS: 38222; 36415; 77012; 85025; 88305; 88311; 88313; 88341; 88342; 99156; J7050; A4216

== ENCOUNTER → 2024-04-30 | Outpatient (CLI) | payer OTHER, SELFPAY ==
[2024-04-30 12:20] LABS: Color, Urine Yellow (Yellow); Glucose, Dipstick Normal (Normal); Ketone-Dipstick 5 mg/dl (Negative); Leukocyte Esterase-Dipstick 500 /ul (Negative); Nitrite-Dipstick Negative (Negative); Occult Blood-Urine 50 /ul (Negative); Protein-Dipstick 30 mg/dl (Negative); Specific Gravity, Urine 1.015 (1.002-1.030); Urine Clarity Clear (Clear); Urine Urobilinogen 1 mg/dl (Normal)
[2024-04-30 12:24] LABS: Absolute Lymphocyte Count 1.43 X10^3/uL (0.83-4.51); Absolute Neutrophil Count 2.9 X10^3/uL (2.0-7.7); Basophil# 0.08 X10^3/uL; Basophil% 1.6 % (0-1); Hematocrit 42.8 % (37-47); Hemoglobin 13.8 g/dL (12.0-15.0); Lymphocyte # 1.43 X10^3/ul (0.83-4.51); Lymphocyte % 28.5 % (19-41); Mean Corp Hgb Conc 32.2 g/dL (32-36); Mean Corpuscular Hgb 31.2 pg (27.0-32.0); Mean Corpuscular Volume 96.8 fL (81-99); Mean Platelet Vol. 9.5 fl (6.2-12.0); Monocyte# 0.44 X10^3/uL; Monocyte% 8.8 % (0-10); NRBC Flagged by Analyzer 0 % (0-5); Neutrophil # 2.86 X10^3/uL (2.7-7.7); Neutrophil % 56.9 % (47-70); Platelet Count 280 K/mm3 (150-450); RBC Distribution Width SD 46.5 fl (35.1-43.9); Red Blood Count 4.42 M/mm3 (4.2-5.4)
[2024-04-30 12:25] LABS: Urine Bilirubin Dipstick 1 mg/dL (Negative)
[2024-04-30 12:40] LABS: Bacteria 2+ /hpf (None Seen); Mucous, Urine 3+ /hpf (<or=2+); Red Blood Cells-Urine 0-5 SEEN /hpf (0-5); Squamous Epithelial Cells - UA 0-5 SEEN /hpf (5-10); White Blood Cells 10-25 SEEN /hpf (0-5)
[2024-04-30 12:50] LABS: ALB/GLOB Ratio 0.8 RATIO (0.9-2.4); AST(SGOT) 16 U/L (15-37); Alanine Aminotransfer ALT/SGPT 24 U/L (13-56); Albumin, Serum 3.8 g/dL (3.2-5.0); Alkaline Phosphatase 76 U/L (45-117); Anion Gap 6 (5-15); BUN 18 mg/dL (7-18); BUN/Creat Ratio 21.4 RATIO (10-20); Calcium,Total 8.9 mg/dL (8.5-10.1); Chloride 106 mmol/L (98-107); Cholesterol 207 mg/dL (200); Creatinine, Serum 0.84 mg/dL (0.55-1.02); EST Glomerular Filtration Rate 72 mL/min (>60); Est Glom Filt Rate - Afr Amer 87 mL/min (>60); Globulin 4.5 g/dL (2.2-4.2); Glucose 96 mg/dL (74-106); High Density Lipoprotein 91 mg/dL; Magnesium 2.3 mg/dL (1.6-2.6); Potassium 3.9 mmol/L (3.5-5.1); Protein, Total 8.3 g/dL (6.4-8.2); Sodium Level 139 mmol/L (136-145); Thyroid Stim Hormone (TSH) 3.02 uIU/mL (0.358-3.74); Triglycerides 36 mg/dL; Very Low Density Lipoprotein 7 mg/dL (5-40)
== END | disposition home or self-care (01) ==
LOC: MFPLAB 09:42
PROVIDERS: PCP Family Medicine; Visit Provider Family Medicine
DX: I10 Essential (primary) hypertension (principal)
CPT/HCPCS: 36415; 80053; 80061; 81001; 83735; 84443; 85025

== ENCOUNTER → 2024-05-28 | Outpatient (CLI) | payer OTHER, SELFPAY ==
--- NOTE | 2024-05-28 10:52 | BD_ITS ---
STUDY: DUAL ENERGY X-RAY ABSORPTIOMETRY / DXA REASON FOR EXAM: Female, 68 years old. [id number] TECHNIQUE: Bone Mineral Density (BMD) measurements of lumbar spine and bilateral hips were obtained. COMPARISON: None. FINDINGS: Lumbar Spine (L1-L4): g/cm2 (0.872) / T-score (-1.6) / Z-score (0.3) Findings are suggestive of osteopenia with a moderate fracture risk. Left Femur Total: g/cm2 (0.800) / T-score (-1.2) / Z-score (0.1) Left Femoral Neck: g/cm2 (0.755) / T-score (-0.8) / Z-score (0.7) Right Femur Total: g/cm2 (0.853) / T-score (-0.7) / Z-score (0.6) Right Femoral Neck: g/cm2 (0.767) / T-score (-0.7) / Z-score (0.9) BD/Dexa Bone Density Study IMPRESSION: The patient is considered osteopenic as outlined below according to World Brend[employer] Organization (WHO) criteria with a moderate fracture risk. Reference Information: The T-score is the number of standard deviations above or below the standard which is normal for young adults at their peak bone mineral density. The World Health Organization (WHO) interprets the T-scores as follows: Above -1 Normal bone density Between -1 and -2.5 Osteopenia Equal to / or below -2.5 Osteoporosis As a practical clinical guideline, osteopenia may be graded as follows: Mild -1 through -1.5 Moderate -1.6 through -2.0 Severe -2.1 through -2.4 The Z-score is the number of standard deviations above or below age-matched controls. A Z-score of less than -1.5 would be considered abnormal. References: 1. NIH Osteoporosis and Related Bone Diseases www osteo.org 2. International Society for Clinical Densitometry www iscd.org 3. National Osteoporosis Foundation www nof.org Electronically Signed: Allan Bailey MD at 13:21 EDT ,
== END | disposition home or self-care (01) ==
LOC: OPBD 10:46
PROVIDERS: PCP Family Medicine; Referring Provider Family Medicine; Visit Provider Family Medicine
DX: Z78.0 Asymptomatic menopausal state (principal)
CPT/HCPCS: 77080

== ENCOUNTER → 2024-08-17 | Outpatient (CLI) | payer OTHER, SELFPAY ==
--- NOTE | 2024-08-17 14:11 | BI_ITS ---
MAMMOGRAPHY - BILATERAL SCREENING REASON FOR EXAM: Female, 68 years old. Routine annual screening examination. PERTINENT HISTORY: Non-contributory. TECHNIQUE: Digital bilateral breast sophie (3D mammographic acquisition) in the CC and MLO projections. 2-D mediolateral oblique (MLO) and craniocaudad (CC) views of both breasts were obtained. CAD: Full Field Digital Mammography with Computer Added Detection was performed. COMPARISON: Comparison is made with prior study August 14, 2023 and August 10, 2022. FINDINGS: Breast Composition: There are scattered areas of fibroglandular density. There are no dominant masses or suspicious calcifications. No other significant abnormalities are identified. There has been no significant change since the prior study. BI/SCRN MAMM (CAD)W/SOPHIE BILAT IMPRESSION: Stable bilateral screening mammogram. Yearly follow-up mammogram recommended. (A) ASSESSMENT CATEGORY: BIRADS Category 1: Negative. A letter regarding these results will be sent to the patient by the facility within 30 days. Approximately 10% of breast cancers are not detected by mammography. A normal mammogram should not delay biopsy of a clinically suspicious abnormality. [id number] Electronically Signed: Allan Bailey MD at 15:11 EST ,
== END | disposition home or self-care (01) ==
LOC: OPBI 14:10
PROVIDERS: PCP Family Medicine; Referring Provider Family Medicine; Visit Provider Family Medicine
DX: Z12.31 Encounter for screening mammogram for malignant neoplasm of breast (principal)
CPT/HCPCS: 77063; 77067

== ENCOUNTER → 2024-10-23 | Outpatient (CLI) | payer BC, SELFPAY ==
--- NOTE | 2024-10-23 12:30 | US_ITS ---
STUDY: ULTRASOUND OF THE FEMALE PELVIS - COMPLETE REASON FOR EXAM: Female, 68 years old. pre-op, thickened endo TECHNIQUE: Transvaginal and transabdominal imaging. COMPARISON: None. FINDINGS: The uterus is anteverted and is in a midline position. The uterus measures 6.4 cm. Normal uterine cervix. The endometrium measures 3.8 mm in thickness, and is fluid distended. There is no demonstrated endometrial mass. There is no demonstrated myometrial mass. I.U.D. - The patient does not have an I.U.D. The right ovary is visualized. The right ovary measures 2.5 cm. There is no right ovarian cyst or ovarian mass. There is no visualized right adnexal mass or complex lesion. There is normal arterial and normal venous vascularity. The left ovary is visualized. The left ovary measures 2.6 cm. There is no left ovarian cyst or ovarian mass. There is no visualized left adnexal mass or complex lesion. There is normal arterial and normal venous vascularity. There is no fluid in the cul-de-sac. Urinary bladder volume is (in cc) 457. US/Pelvic w/ Transvaginal IMPRESSION: There are no acute findings. Endometrium is not thickened. However it is fluid distended. Electronically Signed: Guillermo Villatoro MD at 21:51 EST ,
== END | disposition home or self-care (01) ==
LOC: US 12:27
PROVIDERS: PCP Family Medicine; Referring Provider Nurse Practitioner Women's Health; Visit Provider Nurse Practitioner Women's Health
DX: Z01.818 Encounter for other preprocedural examination (principal); R93.89 Abnormal findings on diagnostic imaging of other specified body structures; N81.2 Incomplete uterovaginal prolapse

== ENCOUNTER → 2024-11-06 | Outpatient (CLI) | payer BC, SELFPAY | END | disposition home or self-care (01) | LOC: LABSPEC 16:43 | PROVIDERS: PCP Family Medicine; Referring Provider Obstetrics & Gynecology; Visit Provider Obstetrics & Gynecology | DX: R35.0 Frequency of micturition (principal) | CPT/HCPCS: 87086; 87088 ==

== ENCOUNTER → 2024-11-17 | Outpatient (CLI) | payer BC, SELFPAY ==
[2024-11-17 13:24] LABS: ALB/GLOB Ratio 0.9 RATIO (0.9-2.4); AST(SGOT) 17 U/L (15-37); Alanine Aminotransfer ALT/SGPT 23 U/L (13-56); Albumin, Serum 3.9 g/dL (3.2-5.0); Alkaline Phosphatase 82 U/L (45-117); Anion Gap 7 (5-15); BUN 20 mg/dL (7-18); BUN/Creat Ratio 28.2 RATIO (10-20); Calcium,Total 9.1 mg/dL (8.5-10.1); Chloride 108 mmol/L (98-107); Cholesterol 173 mg/dL (200); Creatinine, Serum 0.71 mg/dL (0.55-1.02); EST Glomerular Filtration Rate 87 mL/min (>60); Est Glom Filt Rate - Afr Amer 106 mL/min (>60); Globulin 4.4 g/dL (2.2-4.2); Glucose 108 mg/dL (74-106); High Density Lipoprotein 81 mg/dL; Potassium 3.5 mmol/L (3.5-5.1); Protein, Total 8.3 g/dL (6.4-8.2); Sodium Level 138 mmol/L (136-145); Triglycerides 31 mg/dL; Very Low Density Lipoprotein 6 mg/dL (5-40)
[2024-11-17 13:42] LABS: Hemoglobin A1c 5.3 % (3.8-5.6)
== END | disposition home or self-care (01) ==
LOC: MFPLAB 09:55
PROVIDERS: PCP Family Medicine; Referring Provider Family Medicine; Visit Provider Family Medicine
DX: I10 Essential (primary) hypertension (principal); R73.09 Other abnormal glucose
CPT/HCPCS: 36415; 80053; 80061; 83036

== ENCOUNTER 2025-02-12 11:46 | Observation (INO) | payer BC, SELFPAY ==
--- NOTE | 2025-02-03 09:11 | EKG12_ITS ---
Test Reason : PREOP Blood Pressure : */* mmHG Vent. Rate : 84 BPM Atrial Rate : 84 BPM P-R Int : 132 ms QRS Dur : 74 ms QT Int : 372 ms P-R-T Axes : 79 62 55 degrees QTcB Int : 439 ms Normal sinus rhythm Nonspecific ST abnormality Abnormal ECG Confirmed by BEN HAMEED MD ([id number]), communications editor PAUL ESPINOSA ([id number]) on 02/03/2025 2:04:58 PM Referred By: Rebecca Bullock Confirmed By: BEN HAMEED MD
[2025-02-03 10:03] LABS: Hematocrit 41.8 % (37-47); Hemoglobin 13.8 g/dL (12.0-15.0); Mean Corpuscular Hgb 31.8 pg (27.0-32.0); Mean Corpuscular Volume 96.3 fL (81-99); Mean Platelet Vol. 9.4 fl (6.2-12.0); Platelet Count 272 K/mm3 (150-450); RBC Distribution Width CV 12.3 % (11.6-14.6); RBC Distribution Width SD 44.1 fl (35.1-43.9); Red Blood Count 4.34 M/mm3 (4.2-5.4); White Blood Count 5.5 K/mm3 (4.4-11.0)
[2025-02-03 10:38] LABS: ALB/GLOB Ratio 1.1 RATIO (0.9-2.4); AST(SGOT) 24 U/L (<=31); Alanine Aminotransfer ALT/SGPT 15 U/L (<=34); Albumin, Serum 4.3 g/dL (3.4-4.8); Alkaline Phosphatase 81 U/L (35-104); Anion Gap 10 (5-15); BUN 16 mg/dL (4-19); BUN/Creat Ratio 23.2 RATIO (10-20); Calcium,Total 8.8 mg/dL (7.6-11.0); Carbon Dioxide 25.1 mmol/L (21.0-32.0); Chloride 103 mmol/L (98-108); Creatinine, Serum 0.67 mg/dL (0.70-1.20); EST Glomerular Filtration Rate 96 (>60); Globulin 3.8 g/dL (2.2-4.2); Glucose 113 mg/dL (70-99); Magnesium 2.1 mg/dL (1.5-2.2); Potassium 3.9 mmol/L (3.3-5.1); Protein, Total 8.1 g/dL (5.9-8.4); Sodium Level 138 mmol/L (133-145); Total Bilirubin 0.57 mg/dL (0.00-1.30)
--- NOTE | 2025-02-03 15:19 | PAT.ANESEVAL ---
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 When Was Last Pacemaker Check QUESTION #4 FULL TEXT: You/Your Family Experience fever (hyperthermia) with Anesthesia Last Oral Intake Last Oral intake: Last Oral Intake NPO since Meds taken in AM with sips of water? Meds patient instructed to take am of surgery PONV PONV - store operations manager: PONV - store operations manager Female Yes 01/29/25 11:22 HX of Motion Sickness Yes 01/29/25 11:22 HX of N/V After Surgery Yes 01/29/25 11:22 Non-Smoker Yes 01/29/25 11:22 Duration of Surgery greater Yes 01/29/25 11:22 than 60 minutes Number of Risk Factors 5 01/29/25 11:22 PONV Score Severe Risk 01/29/25 11:22 Height & Weight Height & Weight: Anesthesia: Height & Weight Height 5 ft 9 in 11/06/24 15:17 Respiratory Assessment Respiratory Assessment - store operations manager: Respiratory Tract Infection Hx - store operations manager Hx Respiratory Tract Infection No 01/29/25 11:22 STOP Sleep Apnea STOP Sleep Apnea - store operations manager: STOP Sleep Apnea - store operations manager Hx Hypertension Yes: CONTROLLED ON MED 01/29/25 11:22 Hx Sleep Apnea No 01/29/25 11:22 CPAP BIPAP Do you snore loudly (louder No 01/29/25 11:22 than talking or can be heard Do you often feel tired/ No 01/29/25 11:22 fatigued/ sleepy during daytime? Has anyone observed you stop No 01/29/25 11:22 breathing during sleep? STOP Results Negative 01/29/25 11:22 QUESTION #5 FULL TEXT : Do you snore loudly (louder than talking or can be heard through closed doors)? Tobacco Use History Tobacco Use History - store operations manager: Tobacco Use History - store operations manager Tobacco Use Smoking Status Never smoker 01/29/25 11:22 Hx Tobacco Use No 01/29/25 11:22 Years Smoking Packs Smoked per Day Smoking Cessation Date was within the last 15 years Hx Smoking Cessation Date Hx Smoking Cessation Counseling Hematologic Medial History Hematologic Hx - store operations manager: Hematologic Medical Hx - clinical counselor Hx of Blood Transfusion No 01/29/25 11:22 Hx of Transfusion in last 3 No 01/29/25 11:22 Months Date of Last Transfusion (if within last 3 months) Ever experience any problems No 01/29/25 11:22 with transfusion(s)? Specify any problems Hx of Preganancy in last 3 No 01/29/25 11:22 Months Nurse Filling Out Transfusion VCHRISTIN 01/29/25 11:22 & Questions: Date: 01/29/25 01/29/25 11:22 Time: 11:24 01/29/25 11:22 Patient unable to answer at this time (ie. confused, unrespo /Reproduction History /Reproductive History - store operations manager: /Reproductive Hx- store operations manager Hx Now No 01/29/25 11:22 Gestational Age (in weeks): EDC: Hx Hx Para Hx Section SAB No 01/29/25 11:22 [facility] Medical History (Updated 01/29/25 @ 11:22 by Trena Robert) Wears glasses Post-menopausal History of steroid therapy Arthritis Blood disorder Back pain Injury of head and neck Difficulty swallowing Difficulty chewing Gastric reflux Non-smoker Hoarseness Leg cramps History of edema Allergic rhinitis Hypertension Fluid in endometrial cavity Asthma Home Medications ?Medication ?Instructions ?Recorded ?Last Taken ?Type albuterol sulfate 90 mcg/actuation 2 puff inhalation Q6H PRN 11/09/22 Unknown History aerosol inhaler (ProAir HFA) shortness of breath or wheezing amlodipine 10 mg tablet 10 mg PO DAILY 11/09/22 Unknown History biotin 1 mg capsule 1 mg PO DAILY 11/09/22 Unknown History cholecalciferol (vitamin D3) 25 25 mcg PO DAILY 11/09/22 Unknown History mcg (1,000 unit) capsule cranberry fruit 400 mg capsule 400 mg PO DAILY 11/09/22 Unknown History fexofenadine 180 mg tablet 180 mg PO DAILY 11/09/22 Unknown History (Aster Allergy) lactobacillus combination no.9 4 4,000 mmu cells PO DAILY 11/09/22 Unknown History billion cell capsule (Adult 50 Plus Probiotic) [id number] 8 mg-folic 400 1 tab PO DAILY 11/09/22 Unknown History mcg-K 50 mcg-lutein 300 mcg tablet (Centrum Silver Women) turmeric 400 mg capsule 400 mg PO DAILY 11/09/22 Unknown History calcium carbonate (Tums) 200 mg PO BID 10/13/24 Unknown History estradiol 0.01% (0.1 mg/gram) 1 appful vaginal .3 TIMES WEEKLY 01/29/25 Unknown History vaginal cream Allergy/AdvReac Type Severity Reaction Status Date / Time beclomethasone (From Qvar) Allergy Severe Other Verified 01/29/25 11:06 montelukast (From Singulair) AdvReac Mild Other Verified 01/29/25 11:05 Surgical History S/P colonoscopy S/P tubal ligation Social History household members: spouse number of children: 2 current occupational status: retired Smoking Status: Never smoker alcohol intake: never substance use type: does not use seatbelt use: always do you feel safe at home: Yes 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 Normal sinus rhythm. [address] abnormality. Recommendation Anesthesia Recommendation Anesthesia recommendation: OPTIMIZED for anesthesia
[2025-02-12] VITALS (16 sets, daily range): BP systolic 108–131; BP diastolic 57–76; PULSE 72–92; RESP 16; TEMP 36.1–36.6; O2SAT 94–100; BMI 29.5
--- NOTE | 2025-02-12 10:19 | PCM.PRE.AN2 ---
ASA Classification* ASA Classification ASA Classification: 2 and 3 Assessment & Plan Anesthesia* Anesthesia Assessment Anesthesia Assessment: Discussed sedation and/or anesthesia options, risks, benefits, and alternatives with patient/parents/legal guardian/POA. Questions invited. The patient/parents/legal guardian/POA seems to understand and agrees to proceed with anesthesia plan. Reviewed the physical assessment, medical history, allergy history and patient home medications list prior to surgery/procedure/anesthetic and documented any changes. Performed airway and anesthesia risk assessments. Anesthesia Type Anesthesia Type: General Anesthesia Focused Assessment* Airway Assessment Mouth opens: >3 cm Mallampati Score: II Focused Labs Anesthesia Preop lab: CBC WBC 5.5 K/mm3 (4.4-11.0) 02/03/25 09:36 02/03/25 RBC 4.34 M/mm3 (4.2-5.4) 02/03/25 09:36 02/03/25 Hgb 13.8 g/dL (12.0-15.0) 02/03/25 09:36 02/03/25 Hct 41.8 % (37-47) 02/03/25 09:36 02/03/25 Plt Count 272 K/mm3 (150-450) 02/03/25 09:36 02/03/25 CHEMISTRY Potassium 3.9 mmol/L (3.3-5.1) 02/03/25 09:36 02/03/25 Sodium 138 mmol/L (133-145) 02/03/25 09:36 02/03/25 Magnesium 2.1 mg/dL (1.5-2.2) 02/03/25 09:36 02/03/25 BUN 16 mg/dL (4-19) 02/03/25 09:36 02/03/25 Creatinine 0.67 mg/dL (0.70-1.20) L 02/03/25 09:36 02/03/25 Glucose 113 mg/dL (70-99) H 02/03/25 09:36 02/03/25 TSH 3.02 uIU/mL (0.358-3.74) 04/30/24 09:46 04/30/24 COAG Pre-Assessment Diagnosis/Proposed Procedure Planned Operative Procedure(s): (B) Hysterectomy,Total Vaginal, possible Bilateral Salpingo-oophorectomy, Cystoscopy Anesthesia History 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 When Was Last Pacemaker Check QUESTION #4 FULL TEXT: You/Your Family Experience fever (hyperthermia) with Anesthesia Last Oral Intake Last Oral intake: Last Oral Intake NPO since Meds taken in AM with sips of water? Meds patient instructed to take am of surgery PONV PONV - yard labor supervisor: PONV - yard labor supervisor Female Yes 01/29/25 11:22 HX of Motion Sickness Yes 01/29/25 11:22 HX of N/V After Surgery Yes 01/29/25 11:22 Non-Smoker Yes 01/29/25 11:22 Duration of Surgery greater Yes 01/29/25 11:22 than 60 minutes Number of Risk Factors 5 01/29/25 11:22 PONV Score Severe Risk 01/29/25 11:22 Height & Weight Height & Weight: Anesthesia: Height & Weight Height 5 ft 9 in 02/10/25 11:01 Respiratory Assessment Respiratory Assessment - yard labor supervisor: Respiratory Tract Infection Hx - yard labor supervisor Hx Respiratory Tract Infection No 01/29/25 11:22 STOP Sleep Apnea STOP Sleep Apnea - yard labor supervisor: STOP Sleep Apnea - yard labor supervisor Hx Hypertension Yes: CONTROLLED ON MED 01/29/25 11:22 Hx Sleep Apnea No 01/29/25 11:22 CPAP BIPAP Do you snore loudly (louder No 01/29/25 11:22 than talking or can be heard Do you often feel tired/ No 01/29/25 11:22 fatigued/ sleepy during daytime? Has anyone observed you stop No 01/29/25 11:22 breathing during sleep? STOP Results Negative 01/29/25 11:22 QUESTION #5 FULL TEXT : Do you snore loudly (louder than talking or can be heard through closed doors)? 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 Specify any problems Hx of Preganancy in last 3 No 01/29/25 11:22 Months Nurse Filling Out Transfusion VCHRISTIN 01/29/25 11:22 & Questions: Date: 01/29/25 01/29/25 11:22 Time: 11:24 01/29/25 11:22 Patient unable to answer at this time (ie. confused, unrespo /Reproduction History /Reproductive History - yard labor supervisor: /Reproductive Hx- yard labor supervisor Hx Now No 01/29/25 11:22 Gestational Age (in weeks): EDC: Hx Hx Para Hx Section SAB No 02/10/25 11:01 Active Medications Active Medications: Current Medications Generic Name Dose Route Start Last Admin Trade Name Freq PRN Reason Stop Dose Admin Acetaminophen 1,000 mg 02/12/25 11:45 Acetaminophen 500 Mg Tablet PO 02/12/25 11:46 PREOP ONE Celecoxib 400 mg 02/12/25 11:45 Celecoxib 200 Mg Capsule PO 02/12/25 11:46 PREOP ONE Gabapentin 600 mg 02/12/25 11:45 Gabapentin 600 Mg Tablet PO 02/12/25 11:46 PREOP ONE Cefazolin Sodium 2 gm/ Sodium 110 mls @ 150 mls/hr 02/12/25 11:45 Chloride IV 02/12/25 12:28 INTRAOP ONE Lactated Ringer's 1,000 mls @ 70 mls/hr 02/12/25 11:45 IV .[id number] GALEN Lactated Ringer's 1,000 mls @ 40 mls/hr 02/12/25 10:00 IV .Q25H GALEN Insulin Human Lispro 0 unit 02/12/25 11:45 Insulin Lispro 100 Unit/Ml Insuln.Pen SC Q4H PRN PRN BG >/= 180, SEE PROTOCOL Protocol Ondansetron HCl 4 mg 02/12/25 11:45 Ondansetron 4 Mg/2 Ml Vial IV 02/12/25 11:46 INTRAOP ONE Scopolamine HBr 1 patch 02/12/25 11:45 Scopolamine 1mg/72hr Patch TD 02/12/25 11:46 PREOP ONE PFSH Medical History Wears glasses Post-menopausal History of steroid therapy Arthritis Blood disorder Back pain Injury of head and neck Difficulty swallowing Difficulty chewing Gastric reflux Non-smoker Hoarseness Leg cramps History of edema Allergic rhinitis Hypertension Fluid in endometrial cavity Asthma Home Medications ?Medication ?Instructions ?Recorded ?Last Taken ?Type amlodipine 10 mg tablet 10 mg PO DAILY 11/09/22 02/12/25 07:00 History biotin 1 mg capsule 1 mg PO DAILY 11/09/22 02/11/25 History cholecalciferol (vitamin D3) 25 25 mcg PO DAILY 11/09/22 02/11/25 History mcg (1,000 unit) capsule cranberry fruit 400 mg capsule 400 mg PO DAILY 11/09/22 02/11/25 History fexofenadine 180 mg tablet 180 mg PO DAILY 11/09/22 02/11/25 History (Aster Allergy) lactobacillus combination no.9 4 4,000 mmu cells PO DAILY 11/09/22 02/11/25 History billion cell capsule (Adult 50 Plus Probiotic) [id number] 8 mg-folic 400 1 tab PO DAILY 11/09/22 02/11/25 History mcg-K 50 mcg-lutein 300 mcg tablet (Centrum Silver Women) turmeric 400 mg capsule 400 mg PO DAILY 11/09/22 02/11/25 History calcium carbonate (Tums) 200 mg PO BID 10/13/24 02/11/25 History estradiol 0.01% (0.1 mg/gram) 1 appful vaginal .3 TIMES WEEKLY 01/29/25 02/09/25 History vaginal cream Stool Softener equate 1 dose PO QODAY 02/12/25 Unknown History Allergy/AdvReac Type Severity Reaction Status Date / Time beclomethasone (From Qvar) Allergy Severe Other Verified 02/12/25 10:15 montelukast (From Singulair) AdvReac Mild Other Verified 02/12/25 10:15 Surgical History S/P colonoscopy S/P tubal ligation Social History household members: spouse number of children: 2 current occupational status: retired Smoking Status: Never smoker alcohol intake: never substance use type: does not use seatbelt use: always do you feel safe at home: Yes 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
[2025-02-12] MEDS: Gabapentin 600 MG Tablet PO (10:28)
[2025-02-12] MEDS: Acetaminophen 500 MG Tablet 1000 MG PO (10:28)
[2025-02-12] MEDS: Scopolamine 1mg/72hr Patch 1 PATCH TD (10:28)
[2025-02-12] MEDS: Celecoxib 200 MG Capsule 400 MG PO (10:28)
[2025-02-12] MEDS: Lactated Ringers 1,000 ML 40 ML IV (10:37)
[2025-02-12] MEDS: Magnesium 1 GM over 15 mins IV (10:38)
[2025-02-12 11:21] LABS: Bedside Glucose 110 mg/dL (74-106)
--- NOTE | 2025-02-12 11:44 | OP.PCM_ITS ---
Operative Report (Standard) Operative Information Date of Procedure: 02/12/25 Pre-Operative Diagnosis: Incomplete uterovaginal prolapse, stress incontinence Post-Operative Diagnosis: Same Surgery/Procedure Performed: Posterior repair, mid urethral sling insertion, cystoscopy with bilateral ureteral catheterization polysomnographic technician: Yes Medical Practice Assistant: Raina Ching Tasks completed by staffing assistant: Retracting Additional ice cream freezer assistant?: No Type of Anesthesia: General RN Documented Start/Stop Times: Operation Date: 02/12/25 11:45 Case Time Into Pre-Op 02/12/25 09:50 Out of Pre-Op 02/12/25 12:05 Anesthesia Start 02/12/25 12:12 Into Room 02/12/25 12:12 Procedure Start 02/12/25 12:32 Procedure Start Time: 13:50 Procedure Stop Time: 14:46 Select all DRAINS/GRAFTS/IMPLANTS that apply: Implanted device Implanted device details: Altis mid urethral sling Estimated Blood Loss: 35 cc Specimen collected: No Description of surgery: The patient is a 69-year-old female with significant pelvic organ prolapse who presents for surgical intervention. Informed consent was obtained. The patient was taken to the operating room and placed on the operating room table. Anesthesia monitored the head, neck, airway, IV access and vital signs throughout the case. Once anesthesia was appropriately administered, she was placed into dorsal lithotomy position and was prepped and draped in usual sterile fashion. Mendoza catheter was inserted to straight drain and the bladder was emptied. Dr. Crowley performed her portion of the procedure and the vaginal cuff was closed. At this time the case was turned to mi. The Mendoza catheter was removed with deflation of the balloon. The cystoscope was inserted through the urethra under direct visualization into the urinary bladder. The bladder mucosa was visualized in its entirety finding no evidence of foreign body, hemorrhage or trauma. Bilateral ureteral orifices were identified and each 1 was intubated with a 5 Amharic whistle-tip catheter which easily advanced to 20 cm without evidence of obstruction or injury. At this time the cystoscope was removed and the Mendoza catheter was replaced with the balloon inflated with 10 cc. On investigation, the apical support was restored with the hysterectomy and the rugae of the bladder were intact. There was no evidence of anterior d efect at this time and the decision was made to abort anterior repair and sacrospinous ligament fixation. Attention was then turned toward the posterior defect. The posterior vaginal wall was isolated and the submucosa was injected with local anesthetic and a midline incision was made. Sharp and blunt dissection were performed until the rectovaginal fascia was identified and the defects were observed. There were 3 areas of defect identified where the rectovaginal fascia had torn. These areas were brought together with 3-0 PDS in a 2 layer closure with interrupted suture. The perineal body was then reconstructed also using interrupted 3-0 PDS. The stretched vaginal mucosa was removed and the incision was closed using running interlocking 2-0 Vicryl. The mid urethra was then similarly isolated and the submucosa was injected with vasopressin. A vertical midline incision approximately 1.5 cm in length was then made. Sharp and blunt dissection was performed on either side of the ur ethra with care being taken to avoid entry into the urethra or the vaginal mucosa. The Altis mid urethral sling was then placed using the trocars and the tines were passed through the obturator complexes bilaterally. The sling was then positioned against the urethra using the tensioning suture. When it was in the appropriate position, the suture was cut. The vaginal incision was closed using running interlocking 2-0 Vicryl. The patient was then taken out of Trendelenburg position and the Mendoza catheter was removed. Once again the cystoscope was inserted through the urethra under direct visualization into the urinary bladder. There was no evidence of injury, blood, foreign body within the urinary bladder or the urethra. The 5 Amharic whistle-tip catheter was used to gently cannulate each ureteral orifice and advanced without difficulty to 20 cm bilaterally with no evidence of obstruction or injury. Once again the cystoscope was removed and the Mendoza catheter was reinserted with 10 cc in the Mendoza balloon. The patient's vagina was then packed with Premarin cream and vaginal packing. She was awakened and taken to the recovery room in good condition. There were no complications during the procedure. Surgical Findings: No anterior wall defect, sufficient apical support Complications Complications: No Admit VTE Documentation VTE Present on Admission: Yes VTE Mechan Device Prophylaxis: SCD's VTE Pharm Prophylaxis ordered?: Yes
--- NOTE | 2025-02-12 11:45 | HYST_PTH ---
PATIENT: EDY CLEARY LOC: MS3 U#:[id number] AGE/SX: 69/F ROOM: IN305 RE02/12/[address]: Dr. Jeanna Turcios MD : 1955 BED: 1 DIS: 02/13/2025 SPEC #: [id number] RECD: 02/12/25 17:13 STATUS: KEILY MILLAN #: [id number] RORY: 02/12/25 11:[address]: Rebecca Bullock DEPT: SURGICAL PATHOLOGY RECD BY: Marie Baxter ENTERED: 02/15/25 07:15 SP TYPE: HYSTERECT OTHR DR: MD Dr. Judah Hester MD Tissues: A - Uterus, NOS Procedures: Surgery Specimen Level V HEADER OPERATION: ERAS, hysterectomy, total vaginal, bilateral salpingectomy PRE-OP DIAGNOSIS: Rectocele, cystocele with incomplete uterovaginal prolapse TISSUE SUBMITTED: A- Uterus, bilateral fallopian tubes and ovaries MICROSCOPIC DIAGNOSIS A. Uterus, bilateral fallopian tubes and ovaries, hysterectomy and bilateral salpingo-oophorectomy: * Cervix: mild hyperkeratosis. * Endometrium: weakly proliferative - see Comment. * Myometrium: leiomyoma (0.5 cm). * Ovary and fallopian tube with stitch: no specific pathologic change. * Ovary and fallopian tube without stitch: no specific pathologic change. COMMENT Selected slides/images were also reviewed by Dr Robert Negron ([facility] pathology division, [facility]. MICROSCOPIC DESCRIPTION Slides are reviewed. GROSS DESCRIPTION A. Received in formalin in a container labeled with the patient's name, date of , and uterus, bilateral fallopian tubes and ovaries is a 68.6 g hysterectomy specimen with attached cervix and bilateral detached adnexa. The uterus is 8.3 cm from fundus to ectocervix, 3.5 cm from cornu to cornu, and 3.0 cm from anterior to posterior. The mar-pink serosa is previously disrupted. The white-mar ectocervix is 3.5 x 3.3 cm with a 0.8 x 0.8 cm circular os. The specimen is bivalved to reveal a 3 x 0.7 cm corrugated endocervical canal. The linear endometrial cavity is 3.3 cm in length by 0.5 cm in width. There is mar and velvety endometrium measuring 0.1 cm in greatest thickness. The mar-pink myometrium has an average thickness of 1.5 cm. A 0.5 x 0.5 x 0.3 cm white and whorled intramural nodule is identified within the posterior myometrium. No hemorrhage or necrosis is discovered. Received in the same container are bilateral fimbriated fallopian tubes and bilateral ovaries. 1 is received with an undesignated black stitch. The stitched fallopian tube is 5.5 cm in length by 0.6 cm in diameter. The serosa is purple-tuttle with a 0.3 cm paratubal cyst. There are 2 embedded Filshie clips, each measuring 1.5 x 0.4 x 0.4 cm. Sectioning reveals a pinpoint lumen. The attached ovary is 2.4 x 1.5 x 1.0 cm and 1.9 g. The outer surface is mar-yellow, smooth, and inked black. Sectioning reveals unremarkable ovarian parenchyma. The unstitched fallopian tube is 6 cm in length by 0.7 cm in diameter with purple-tuttle, smooth serosa. 2 embedded Filshie clips are present, each measuring 1.5 x 0.4 x 0.4 cm. Sectioning reveals a pinpoint lumen. The attached ovary is 2.0 x 0.8 x 0.7 cm and 1.2 g. The outer surface is mar, smooth, and inked black. Sectioning reveals a small amount of unremarkable ovarian parenchyma. Four H Agent sections:A1. Anterior cervix with anterior serosal shaveA2. Posterior cervix with posterior serosal shaveA3. Anterior endomyometrium (superficial sections)A4. Posterior endomyometrium (superficial sections)A5. Entirety of posterior myometrial noduleA6. Adnexa with stitch (undesignated)A7. Adnexa without stitch [facility] 02-15-2025 CPT:92319
--- NOTE | 2025-02-12 12:07 | HP.PCM_ITS ---
History and Physical Date of Admission: 02/12/25 Intake Vital Signs 11/06/2514:17 02/10/2511:00 02/10/2511:01 Height 5 ft 9 in 5 ft 9 in 5 ft 9 in Weight: 200 lb 2 oz BMI 29.5 BP 153/76 H Intake Visit Reasons: TVH poss. BSO Cysto Tam combo Mounting Inspector Required: No Is patient in pain?: No Allergies beclomethasone (From Qvar) Allergy (Severe, Verified 02/10/25 10:59) Othermontelukast (From Singulair) Adverse Reaction (Mild, Verified 02/10/25 10:59) Other Medications ?Medication ?Instructions ?Recorded ?Confirmed ?Type amlodipine 10 mg tablet 10 mg PO DAILY 11/09/22 02/10/25 History biotin 1 mg capsule 1 mg PO DAILY 11/09/22 02/10/25 History cholecalciferol (vitamin D3) 25 25 mcg PO DAILY 11/09/22 02/10/25 Histor y mcg (1,000 unit) capsule cranberry fruit 400 mg capsule 400 mg PO DAILY 11/09/22 02/10/25 Histor y fexofenadine 180 mg tablet 180 mg PO DAILY 11/09/22 02/10/25 Histor y (Aster Allergy) lactobacillus combination no.9 4 4,000 mmu cells PO DAILY 11/09/22 History billion cell capsule (Adult 50 Plus Probiotic) [id number] 8 mg-folic 400 1 tab PO DAILY 11/09/22 02/10/25 History mcg-K 50 mcg-lutein 300 mcg tablet (Centrum Silver Women) turmeric 400 mg capsule 400 mg PO DAILY 11/09/22 02/10/25 Histor y calcium carbonate (Tums) 200 mg PO BID 10/13/24 02/10/25 History estradiol 0.01% (0.1 mg/gram) 1 appful vaginal .3 TIMES WEEKLY 5 02/10/25 History vaginal cream Is last menstrual period known: No Post menopausal: Yes Patient : No : No PFSH Medical History Wears glasses Post-menopausal History of steroid therapy Arthritis Blood disorder Back pain Injury of head and neck Difficulty swallowing Difficulty chewing Gastric reflux Non-smoker Hoarseness Leg cramps History of edema Allergic rhinitis Hypertension Fluid in endometrial cavity Asthma Surgical History S/P colonoscopy S/P tubal ligation Social History household members: spouse number of children: 2 current occupational status: retired Smoking Status: Never smoker alcohol intake: never substance use type: does not use seatbelt use: always do you feel safe at home: Yes 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 BSO Cysto [place] combo Details: EDY CLEARY is a 68 year old (vaginal deliveries) who presents for the complaint of pelvic prolapse symptoms. She states that she had a 10 pound baby and both were born vaginally. She has taken care of her eldrly parents, and lifts heavy objects from time to time. She also notices that she sometimes has to form a splint to help dislodge stool that is trapped in the space between her vagina and rectum. She has urinary frequency in the sense that she will use the rest room and then will go back a few minutes later and still have more urine to pass. She tried 2 pessaries, a #4 and 5 ring with support and it felt very unc omfortable to her. These symptoms are bothersome daily and she would rather try surgery to help. ultrasound showed the following: FINDINGS: The uterus is anteverted and is in a midline position. The uterus measures 6.4 cm. Normal uterine cervix. The endometrium measures 3.8 mm in thickness, and is fluid distended. There is no demonstrated endometrial mass. There is no demonstrated myometrial mass. I.U.D. - The patient does not have an I.U.D. The right ovary is visualized. The right ovary measures 2.5 cm. There is no right ovarian cyst or ovarian mass. There is no visualized right adnexal mass or complex lesion. There is normal arterial and normal venous vascularity. The left ovary is visualized. The left ovary measures 2.6 cm. There is no left ovarian cyst or ovarian mass. There is no visualized left adnexal mass or complex lesion. There is normal arterial and normal venous vascularity. There is no fluid in the cul-de-sac. Urinary bladder volume is (in cc) 457. US/Pelvic w/ Transvaginal IMPRESSION: There are no acute findings. Endometrium is not thickened. However it is fluid distended. History 2 Elective abortions Hx Para 2 Spontaneous abortions Hx # Term Pregnancies Ectopic pregnancies Hx # Pregnancies Multiple births # of living children Past Pregnancies Del. Date Name GA/Weeks Outcome Route Bth Weight Gen Labor Lgth Anesthesia Del Locatn Provider FOB Unknown Juan Carlos 1979 Unknown Marshall 1981 ROS Const ROS Unobtainable: All systems reviewed & are unremarkable except as noted in H Resp Resp: Reports system reviewed and no additional complaints, except as documented; Denies cough GI GI: Reports as per HPI Psych Psych: Reports system reviewed and no additional complaints, except as documented Exam Const General: cooperative, healthy appearing, comfortable and no acute distress Resp Effort & Inspection: normal respiratory effort Skin General: no rashes or lesions noted Psych Appearance: grossly normal Speech and Movement: speech and movement normal Coding Level of Care Code Off vis,est,level 4 Diagnoses Rectocele N81.6 Cystocele with incomplete uterovaginal prolapse N81.2 Assessment and Plan Assessment and Plan (1) Rectocele: Status: Acute (2) Cystocele with incomplete uterovaginal prolapse: Status: Acute Comment: declines pessary, attempted #4 & 5 ring with support. Needs combo case JV/HW Plan After discussing the patient's diagnosis and treatment plan options, patient wishes to proceed with surgical management. I have discussed with the patient the risks, benefits, and alternatives of the procedure which include but are not limited to risks of anesthesia, bleeding, infection, possible damage to bowel, bladder, or surrounding vasculature which could lead to additional surgery to evaluate any complications. Patient agrees to procedure and wishes to proceed. ACOG/uptodate references given for additional information regarding procedure. plan for total vaginal hysterectomy, BSO and Dr. Turcios AP repair.
--- NOTE | 2025-02-12 12:07 | PCM.DC ---
Discharge Instructions Diet Discharge Diet: No restrictions DC O2, CPAP, BIPAP needs Home O2 Discharge instructions: No Dressing / Incision Discharge Activity: Return to Normal Activity, May Not Drive (while taking narcotic pain medications.) and May Shower May resume sexual activity in: 6-8 weeks Dressing / Incision Call your doctor if your incision/area has: Continuous Slow Oozing, Sudden Increased Bleeding, Increased Pain/ Swelling, Increased Redness and Foul Smelling Discharge Call your doctor if you observe: Fever of 101 or Higher, Inability to urinate, Inability to have a bowel movement and Using more than 1 pad per hour Follow Up Care Please Follow Up With: Rebecca Bullock DO Test Results: Test results from this visit will be discussed in further detail at your follow-up appointment, if applicable. Discharge Plan Admission Attending Provider: Rebecca Bullock Primary Care Provider: Judah Gao Consulting Providers: Jeanna Turcios Instructions Print Language: Nigerian Discharge Orders/Prescriptions Prescriptions: No Action Centrum Silver Women 8 mg iron-400 mcg-300 mcg tablet 1 tab PO DAILY fexofenadine [Aster Allergy] 180 mg tablet 180 mg PO DAILY amlodipine 10 mg tablet 10 mg PO DAILY Adult 50 Plus Probiotic 4 billion cell capsule 4,000 mmu cells PO DAILY Rx Instructions: administer with a meal cholecalciferol (vitamin D3) 25 mcg (1,000 unit) capsule 25 mcg PO DAILY cranberry fruit 400 mg capsule 400 mg PO DAILY Rx Instructions: administer with a meal biotin 1 mg capsule 1 mg PO DAILY turmeric 400 mg capsule 400 mg PO DAILY calcium carbonate [Tums] 200 mg calcium (500 mg) tablet,chewable 200 mg PO BID estradiol 0.01 % (0.1 mg/gram) cream 1 appful vaginal .3 TIMES WEEKLY Stool Softener equate 1 dose PO QODAY Referrals / Follow Up: Judah Gao MD [Primary Care Provider] - Disposition Disposition (needs filled in before D/C Order can be placed): Home, Self Care
[2025-02-12] MEDS: Cefazolin 2 GM in 0.9% Normal Saline (100mL Bag) 100 ML IV (12:20)
--- NOTE | 2025-02-12 13:54 | PCM.OPRPT ---
Problems Associated Problem List Diagnoses (1) Rectocele: (2) Cystocele with incomplete uterovaginal prolapse: Multi Select Codes Urinary/Genital Urinary/Genital CPT Codes: 93504 TVH+BS/O <250gr uterus Operative Report (Standard) Operative Information Date of Procedure: 02/12/25 Pre-Operative Diagnosis: pelvic organ prolapse Post-Operative Diagnosis: pelvic organ prolapse Surgery/Procedure Performed: total vaginal hysterectomy, bilateral salpingo-oophorectomy office nurse practitioner: Yes Food Clerk: Yolie Villar Tasks completed by registered nurse first assistant: Retracting Additional hotel assistant general manager?: Yes Additional Fabric Worker Leader #2: Raina Ching Tasks completed by hotel assistant general manager #2: Retracting Additional hotel assistant general manager?: No Type of Anesthesia: General RN Documented Start/Stop Times: Operation Date: 02/12/25 11:45 Case Time Into Pre-Op 02/12/25 09:50 Out of Pre-Op 02/12/25 12:05 Anesthesia Start 02/12/25 12:12 Into Room 02/12/25 12:12 Procedure Start 02/12/25 12:32 Procedure Start Time: 12:32 Procedure Stop Time: 12:50 Select all DRAINS/GRAFTS/IMPLANTS that apply: None Estimated Blood Loss: 30cc Specimen collected: Yes Description of specimen(s) removed: uterus, cervix, fallopian tubes, ovaries Description of surgery: Procedure: The patient was prepped and draped in the usual sterile manner for an abdominal perineal procedure. A weighted speculum was placed in the posterior vaginal vault. A Mendoza catheter was placed of the urethra without difficulty. The cervix was grasped with a single-tooth tenaculum on both its anterior and posterior lips. With downward traction, a circumferential incision was made on the vaginal mucosa. This allowed dissection and entrance into the posterior cul-de-sac at this time we visualized the uterosacral ligaments. These were clamped and ligated with a #0 Vicryl suture. Cervical vesicle space was then created by both blunt and sharp dissection, allowing us to see the cardinal ligaments. These were clamped and ligated with a #0 Vicryl suture as well. Once in the cervical vesicle space, we were then able to completely ligate the uterosacral cardinal ligament complex with a #0 Vicryl suture. The anterior cul-de-sac was then entered sharply. Omentum and intestines were then visualized through the anterior cul-de-sac window and we began removal of the uterine body. Uterine arteries were then clamped and ligated with a #0 Vicryl suture and carried down towards the uterus until complete removal was obtained. #0 Vicryl suture was used on all major pedicles with Tonya clamping. The tubes and ovaries were visualized on either side. The tubo ovarian complex was doubly ligated with a #0 Vicryl suture The entire vaginal vault was visualized We inspected for hemostasis and this was secured. Angled sutures were placed at 3 and 9:00 using #0 Vicryl suture in the usual manner. Once these angled sutures were placed in tension was applied we could see the peritoneum on either side. We closed the peritoneum with a #0 Vicryl in a running continuous manner. Hemostasis was excellent. We irrigated copiously. The sponge count was correct x2 at this time. We began closure of the vaginal mucosa. #0 Vicryl suture was used to close the vaginal mucosa in an interrupted manner, starting at the 9 and 3:00 positions and meeting in the midline. The Mendoza catheter was then removed. Surgical Findings: normal uterus, cerivx, small ovaries, normal tubes with filshie clips in place. (these were also removed) Complications Complications: No Admit VTE Documentation VTE Present on Admission: No VTE Mechan Device Prophylaxis: SCD's VTE Pharm Prophylaxis ordered?: No
[2025-02-12] MEDS: Ondansetron 4 MG/2 ML Vial IV (14:30)
[2025-02-12] MEDS: Lidocaine 1% /Epi 1:100 (20ml) 20 ML Vial ×2 (14:36)
[2025-02-12] MEDS: Estrogens,Conj. 1 Tube 1 DOSE (14:38)
--- NOTE | 2025-02-12 14:51 | DCINST_ITS ---
Discharge Instructions Diet Discharge Diet: No restrictions Activity Discharge Activity: May Shower May resume sexual activity in: 8 weeks Lifting Restrictions: 5 pounds, no lifting, exercise, dog walking or vacuuming Additional Activity Instructions:: No tub bathing, swimming or hot tubs Dressing / Incision Call your doctor if your incision/area has: Continuous Slow Oozing, Sudden Increased Bleeding, Increased Pain/ Swelling, Increased Redness and Foul Smelling Discharge Call your doctor if you observe: Fever of 101 or Higher, Inability to urinate, Inability to have a bowel movement and Using more than 1 pad per hour Follow Up Care Please Follow Up With: Rebecca Bullock DO Test Results: Test results from this visit will be discussed in further detail at your follow- up appointment, if applicable. Discharge Plan Admission Attending Provider: Rebecca Bullock Primary Care Provider: Judah Gao Consulting Providers: Jeanna Turcios Instructions Print Language: Chadian Discharge Orders/Prescriptions Prescriptions: New ondansetron 8 mg tablet,disintegrating 8 mg PO Q8H PRN (Reason: nausea and vomiting) Qty: 10 0RF oxycodone-acetaminophen 5-325 mg tablet 1 tab PO Q8H PRN (Reason: pain) 3 Days Qty: 10 0RF cephalexin 500 mg capsule 500 mg PO Q12 3 Days Qty: 6 0RF Continued Centrum Silver Women 8 mg iron-400 mcg-300 mcg tablet 1 tab PO DAILY fexofenadine [Aster Allergy] 180 mg tablet 180 mg PO DAILY amlodipine 10 mg tablet 10 mg PO DAILY Adult 50 Plus Probiotic 4 billion cell capsule 4,000 mmu cells PO DAILY Rx Instructions: administer with a meal cholecalciferol (vitamin D3) 25 mcg (1,000 unit) capsule 25 mcg PO DAILY cranberry fruit 400 mg capsule 400 mg PO DAILY Rx Instructions: administer with a meal biotin 1 mg capsule 1 mg PO DAILY turmeric 400 mg capsule 400 mg PO DAILY calcium carbonate [Tums] 200 mg calcium (500 mg) tablet,chewable 200 mg PO BID estradiol 0.01 % (0.1 mg/gram) cream 1 appful vaginal .3 TIMES WEEKLY Stool Softener equate 1 dose PO QODAY Referrals / Follow Up: Judah Gao MD [Primary Care Provider] - Disposition Disposition (needs filled in before D/C Order can be placed): Home, Self Care
--- NOTE | 2025-02-12 15:35 | PCM.POST.ANE ---
Anesthesia: Postop Eval I Current Vital Signs Temperature: 97.5 F Pulse Rate: 73 Blood Pressure: 112/63 Respiratory Rate: 16 Pulse Ox: 99 Oxygen Delivery Method: Nasal Cannula Oxygen Flow Rate (L/min): 4 Assessment Airway patent: Yes Spontaneous unlabored respirations: Yes Mental status: Awake nausea: No Vomiting: No Anesthesia Complication: No Fluid Hydration Crystalloid volume administer (ml): 800 Total IV fluid infused: 800 Progress Note Anesthesia document: Postop Eval 1 completed: Yes
--- NOTE | 2025-02-12 16:20 | PCM.POSTANE2 ---
Anesthesia Postop Eval I Sum Postop Eval Completion status Anesthesia document: Postop Eval 1 completed: Yes Anesthesia Postop Eval I Summary Anesthesia Postop Eval I Summary: Anesthesia Postop Eval I: Assessment Summary Airway patent Yes 02/12/25 16:08 Spontaneous unlabored Yes 02/12/25 16:08 respirations Mental status Awake 02/12/25 16:08 nausea No 02/12/25 16:08 Vomiting No 02/12/25 16:08 Anesthesia Postop Eval I: Fluid Summary Crystalloid volume administer 800 02/12/25 16:08 (ml) Colloids volume administered ( ml) Blood Product volume administered (ml) Total IV fluid infused 800 02/12/25 16:08 Anesthesia Postop Eval I: Summary Notes Anesthesia Complication No 02/12/25 16:08 Anesthesia Complication Comment: Post-operative progress note Anesthesia: Postop Eval II Evaluation Mental status: Awake Pain Level: 0 nausea: No Vomiting: No
[2025-02-12] MEDS: Ketorolac 15 MG/ML Vial IV (17:37)
[2025-02-12] MEDS: Lactated Ringers 1,000 ML 100 ML IV (17:40)
[2025-02-12] MEDS: Cefazolin 1 GM/50 ML BAG IV (20:31)
[2025-02-12] MEDS: oxyCODONE 5 MG Tablet PO (22:51)
[2025-02-13 00:19] LABS: Absolute Lymphocyte Count 0.58 X10^3/uL (0.83-4.51); Absolute Neutrophil Count 7.5 X10^3/uL (2.0-7.7); Basophil# 0.02 X10^3/uL; Basophil% 0.2 % (0-1); Hematocrit 36.1 % (37-47); Hemoglobin 12.2 g/dL (12.0-15.0); Lymphocyte # 0.58 X10^3/ul (0.83-4.51); Mean Corp Hgb Conc 33.8 g/dL (32-36); Mean Corpuscular Hgb 31.8 pg (27.0-32.0); Mean Platelet Vol. 9.3 fl (6.2-12.0); Monocyte# 0.13 X10^3/uL; Monocyte% 1.6 % (0-10); NRBC Flagged by Analyzer 0 % (0-5); Neutrophil % 90.8 % (47-70); POSITIVE DIFFERENTIAL YES; Platelet Count 240 K/mm3 (150-450); RBC Distribution Width CV 12.6 % (11.6-14.6); RBC Distribution Width SD 43.6 fl (35.1-43.9); Red Blood Count 3.84 M/mm3 (4.2-5.4); White Blood Count 8.3 K/mm3 (4.4-11.0)
[2025-02-13 01:03] LABS: Anion Gap 11 (5-15); BUN 10 mg/dL (4-19); BUN/Creat Ratio 15.3 RATIO (10-20); Calcium,Total 8.3 mg/dL (7.6-11.0); Carbon Dioxide 21.1 mmol/L (21.0-32.0); Chloride 103 mmol/L (98-108); Creatinine, Serum 0.63 mg/dL (0.70-1.20); EST Glomerular Filtration Rate 97 (>60); Estimated Creatinine Clearance 81.88 ml/min (50-250); Glucose 184 mg/dL (70-99); Potassium 4.5 mmol/L (3.3-5.1); Sodium Level 135 mmol/L (133-145)
[2025-02-13 03:56] VITALS: BP 130/73; PULSE 74; RESP 16; TEMP 36.8; O2SAT 97
[2025-02-13] MEDS: Cefazolin 1 GM/50 ML BAG IV (03:57)
[2025-02-13] MEDS: Lactated Ringers 1,000 ML 100 ML IV (03:58)
[2025-02-13] MEDS: 0.9% Saline Lock 10 ML Syringe IV (04:04)
[2025-02-13] MEDS: Ketorolac 15 MG/ML Vial IV (04:04)
[2025-02-13 06:35] VITALS: BP 122/67; PULSE 68; RESP 16; TEMP 36.6; O2SAT 99
[2025-02-13 07:32] VITALS: O2SAT 98
[2025-02-13 08:14] VITALS: BP 127/65; PULSE 74; RESP 18; TEMP 36.7; O2SAT 95
--- NOTE | 2025-02-13 09:11 | PCM.PN.GU ---
Subjective Subjective Feeling great, no complaints overnight. Tolerating PO intake and has ambulated. Objective Data Objective Data Vital Signs: Vital Signs Temp Pulse Resp BP Pulse Ox O2 Del Method O2 Flow Rate 98.1 F 74 18 127/65 H 95 Room Air 4 02/13/25 08:14 02/13/25 08:14 02/13/25 08:14 02/13/25 08:14 02/13/25 08:14 02/13/25 08:14 02/12/25 17:08 Oxygen Flow Rate (L/min) 4 Oxygen Delivery Method Room Air Weight: 90.718 kg Body Mass Index (BMI) 29.5 Intake & Output: Intake and Output for Last 24 Hours 02/11/25 02/12/25 02/13/25 23:59 23:59 23:59 Intake Total 2042.33 / 2042.33 1563.34 / 1563.34 Output Total 975 / 2675 4400 / 4400 Balance 1067.33 / -632.67 -2836.66 / -2836.66 Lab / Micro Data 02/12/25 23:52 02/12/25 23:52 Labs: Laboratory Results - last 24 hr 02/12/25 10:24: POC Glucose 110 H 02/12/25 23:52: WBC 8.3, RBC 3.84 L, Hgb 12.2, Hct 36.1 L, MCV 94.0, MCH 31.8, MCHC 33.8, RDW Std Deviation 43.6, RDW Coeff of Sydnie 12.6, Plt Count 240, MPV 9.3, Immature Gran % (Auto) 0.400, Neut % (Auto) 90.8 H, Lymph % (Auto) 7.0 L, [place] % (Auto) 1.6, Eos % (Auto) 0.0, Baso % (Auto) 0.2, Absolute Neuts (auto) 7.5, Absolute Lymphs (auto) 0.58 L, Nucleated RBC % 0, Sodium 135, Potassium 4.5, Chloride 103, Carbon Dioxide 21.1, Anion Gap 11, BUN 10, Creatinine 0.63 L, Estim Creat Clear Calc 81.88, Est GFR (MDRD) Non-Af 97, BUN/Creatinine Ratio 15.3, Glucose 184 H, Calcium 8.3 Physical Exam Narrative Mendoza catheter and vaginal packing removed, no issues. Const alert, oriented x3 and no apparent distress General Appearance: cooperative and comfortable HEENT normocephalic and head/scalp atraumatic Eyes General Eye: normal appearance of both eyes Neck supple General: normal visual inspection and trachea midline Lymph Lymphatic: no lymphedema noted Chest inspection of chest normal Chest: symmetrical chest wall rise Resp normal respiratory effort and normal air movement Cardio regular rate GI soft to palpation, non-tender and non-distended no CVA tenderness and external exam normal Bladder / Kidney Exam: catheter in place Extremity normal to inspection Skin no rashes or lesions noted Neuro oriented x3 and CN's II-XII intact bilaterally Psych mental status grossly normal and thought process normal Assessment & Plan Assessment/Plan (1) Rectocele: (2) Cystocele with incomplete uterovaginal prolapse: PLAN: Plan await trial of void home later today
[2025-02-13] MEDS: Enoxaparin 40 MG/0.4 ML Syringe SC (11:23)
[2025-02-13 13:34] VITALS: BP 121/61; PULSE 72; RESP 16; TEMP 36.5; O2SAT 100
== END 2025-02-13 13:43 | disposition home or self-care (01) ==
LOC: SDC 15:22 → MS3 16:32
PROVIDERS: Anesthesiology; Admitting Provider Obstetrics & Gynecology; PCP Family Medicine; Referring Provider Obstetrics & Gynecology; Visit Provider Urology
PROC: (CPT 58260; principal; 2025-02-12 11:25)
PROC: (CPT 57260; 2025-02-12 11:25)
DX: N81.2 Incomplete uterovaginal prolapse (principal); N88.0 Leukoplakia of cervix uteri; D25.9 Leiomyoma of uterus, unspecified; N39.46 Mixed incontinence; N36.42 Intrinsic sphincter deficiency (ISD); R35.1 Nocturia; N95.2 Postmenopausal atrophic vaginitis; I10 Essential (primary) hypertension; J45.909 Unspecified asthma, uncomplicated; K21.9 Gastro-esophageal reflux disease without esophagitis; Z79.899 Other long term (current) drug therapy
CPT/HCPCS: 58262; 57250; 51840; 00944; 36415; 80048; 80053; 82962; 83735; 85025; 85027; 86850; 86900; 86901; 88307; 93005; 94668; 96361; 96365; 96366; 96372; 96375; 96376; 99221; C1771; A4216; G0378; J2405; J3475

== ENCOUNTER → 2025-02-16 | Outpatient (CLI) | payer BC, SELFPAY | END | disposition home or self-care (01) | LOC: LABSPEC 16:52 | PROVIDERS: PCP Family Medicine; Referring Provider Nurse Practitioner Women's Health; Visit Provider Nurse Practitioner Women's Health | DX: N89.8 Other specified noninflammatory disorders of vagina (principal) | CPT/HCPCS: 87255 ==

== ENCOUNTER → 2025-07-16 | Outpatient (CLI) | payer BC, SELFPAY ==
[2025-07-16 12:49] LABS: AST(SGOT) 20 U/L (<=31); Alanine Aminotransfer ALT/SGPT 15 U/L (<=34); Albumin, Serum 4.3 g/dL (3.4-4.8); Alkaline Phosphatase 79 U/L (35-104); Anion Gap 10 (5-15); BUN 13 mg/dL (4-19); BUN/Creat Ratio 18.8 RATIO (10-20); Calcium,Total 8.9 mg/dL (7.6-11.0); Carbon Dioxide 25.3 mmol/L (21.0-32.0); Chloride 103 mmol/L (98-108); Globulin 3.5 g/dL (2.2-4.2); Glucose 98 mg/dL (70-99); Lipase 31 U/L (13-75); Potassium 3.8 mmol/L (3.3-5.1)
== END | disposition home or self-care (01) ==
LOC: MTLAB 09:44
PROVIDERS: PCP Family Medicine; Referring Provider Family Medicine; Visit Provider Family Medicine
DX: R10.9 Unspecified abdominal pain (principal)
CPT/HCPCS: 36415; 80053; 83690

== ENCOUNTER → 2025-08-02 | Outpatient (CLI) | payer BC, SELFPAY ==
--- NOTE | 2025-08-02 08:15 | CT_ITS ---
PROCEDURE: ABDOMEN/PELVIS W IV CONT ONLY 08/02/2025 REASON FOR EXAM: ABDOMENAL PAIN AFTER SURGERY, EVAL SPIGELIAN HERNIA TECHNIQUE: Procedure Code: [id number] Modality: CT Procedure: ABDOMEN/PELVIS W IV CONT ONLY Coronal and Sagittal reconstruction series were provided. CONTRAST: Isovue 370 VOLUME: 100 mL One or more dose reduction techniques were used (e.g., Automated exposure control, adjustment of the mA and/or kV according to patient size, use of iterative reconstruction technique. RADIATION DOSE SUMMARY: CTDlvol: 28.85 mGy DLP: 987.85 mGycm COMPARISON: None FINDINGS: Lung bases: Clear Liver: Normal size. No mass. Gallbladder: Unremarkable Spleen: Normal size. Pancreas: Normal size without evidence of mass surrounding inflammation or ductal dilation. Adrenals: Unremarkable Kidneys: Normal renal sizes. No hydronephrosis. Bladder: Incompletely distended but otherwise unremarkable Reproductive Organs: Likely surgically absent Bowel: No CT evidence of obstruction or acute inflammation. Retained stool noted throughout the colon Appendix: Not visualized Lymph nodes: No suspicious mesenteric or retroperitoneal adenopathy Vasculature: The abdominal aorta and IVC are normal. Peritoneum / Retroperitoneum: No free fluid or air Bones: Mild degenerative bony changes CT/Abdomen/Pelvis W IV Cont ONLY IMPRESSION: No suspicious solid organ abnormality No free intraperitoneal fluid, air, or suspicious adenopathy No CT evidence of acute inflammation Reading Location: [id number]
== END | disposition home or self-care (01) ==
LOC: CT 08:01
PROVIDERS: PCP Family Medicine; Referring Provider Family Medicine; Visit Provider Family Medicine
DX: R10.9 Unspecified abdominal pain (principal)
CPT/HCPCS: 74177; Q9967

== ENCOUNTER → 2025-08-18 | Outpatient (CLI) | payer BC, SELFPAY ==
--- NOTE | 2025-08-18 08:29 | BI_ITS ---
EXAM: SCRN MAMM (CAD)W/SOPHIE BILAT DATE: 08/18/2025 CLINICAL HISTORY: F, Age 69 y/o , SCREENING No family history. TECHNIQUE: Procedure Code: [id number] Modality: MG Procedure: SCRN MAMM (CAD)W/SOPHIE BILAT COMPARISON: Prior exam(s) dated August 17, 2024.. FINDINGS: TISSUE DENSITY: There are scattered areas of fibroglandular density. Bilateral Breast Mammographic Findings: No significant masses, calcifications or other abnormalities are identified. No suspicious masses, areas of developing architectural distortion, or suspicious calcifications. There has been no significant interval change. BI/SCRN MAMM (CAD)W/SOPHIE BILAT IMPRESSION: Stable bilateral screening mammogram. OVERALL FINAL ASSESSMENT BI-RADS 1: NEGATIVE. RECOMMENDATION: Routine annual follow-up in 1 Year Additional Recommendation none A letter with findings and recommendations will be mailed to the patient. Reading Location: [facility]
== END | disposition home or self-care (01) ==
LOC: OPBI 08:28
PROVIDERS: PCP Family Medicine
DX: Z12.31 Encounter for screening mammogram for malignant neoplasm of breast (principal)
CPT/HCPCS: 77063; 77067

== ENCOUNTER 2025-09-22 11:30 | Outpatient (RCR) | payer BC, SELFPAY ==
--- NOTE | 2025-05-27 16:39 | HP.PTEVAL_ITS ---
Patient's Visit Information Visit Information Visit Information: KIRSTEN CLEARY is a 69 year old F referred to Physical Therapy by Dr. Jeanna Turcios MD with a diagnosis of N81.11 , N39.41. Date of Evaluation: 05/27/25 Physical Therapist: Christen Serrano Visit Plan Frequency: 1x/Week Duration: 3 Months Plan: Kirsten would benefit from skilled PT intervention to address her incontinence and penetration pain since surgery. She has a mild cystocele and pelvic floor tightness/weakness. We will address with manual therapy and a pelvic floor strengthening program. We will also address her breathing mecha nics as she has asthma and may be putting pressure down thru her pelvic floor with improper breathing mechanics. Continue 1 x week. Continue pelvic floor releases to address tightness left side of pelvic floor. Evaluate breathing mechanics (she has asthma). Add week 2. Check lumbar, T/L junction as well. Has she tried Oh nut to help with deep penetration pain? Subjective Subjective: Complete Hysterectomy and cystocele/rectocele repair with Dr. Turcios and Chris February 12, 2025. She was having trouble with bowel movements prior to the surgery and felt bulging. After surgery, she developed bronchitis in beginning of March (she has asthma). She coughed so forcefully and she could feel things drop again. Her goal is to improve the leaking (she goes thru 2 light pads (3-4 poise pads before surgery) and improve the penetration pain. Bulging at opening but not as much as before surgery (1-2 now , before surgery 2+). She admits right after surgery she felt great and had no leakage. Sometimes she doesn't even know she is leaking but admits most of the leaking occurs with activity and movement . She wears a pad. She leaks with a cough or sneeze. Not as bad as before. She is eating more fresh vegetables and that helps with bowel movements. She does splint for bowel movements. She has a bowel movements usually once a day. Not getting stuck like it was before. She has pain with penetration. Pain with deep penetration. 10. She used to walk a lot. She swims with friends. Estrogen cream 3 x week. Objective Objective: Cystocele 1, No evidence of rectocele, LAYCOCK 12/14//3, Nice contraction, mild pelvic floor tightness left side layer 2-3 with tenderness, Did not evaluate breathing mechanics POPDI-6 11, CRAD-8 12, TOMAS-6 13 Goals Goal 1:: Kirsten will be able to cough or sneeze without leaking. Goal Time Frame: 8-12 Weeks Goal 2:: Kirsten will be able to go thru day to day activities and not have to wear a pad. Goal Time Frame: 8-12 Weeks Goal 3:: Kirsten will be able to tolerate vaginal penetration without pain with deep penetration. Goal Time Frame: 8-12 Weeks Rehabilitation Potential Physical Therapy Diagnosis: Stress incontinence Rehabilitation Potential: Good Anticipated Interventions Patient/Client Instruction: Educate patient on: Condition and Plan of Care For the Purpose of:: To decrease pain, To improve muscle performance and motor function, To improve health and function, To improve self management and To improve tolerance to ADL's Therapeutic Exercise to Include: Strength training For the Purpose of:: To improve muscle performance and motor function, To improve health and function and To improve self management Manual Therapy Techniques to Include: Trigger point massage, Mobilization and Soft tissue mobilization For the Purpose of:: To improve muscle performance and motor function and To improve self management Text: Thank you for the opportunity to evaluate your patient. For Medicare and Medicare HMO plans, please review the plan of care and approve it. It will need to be FAXED BACK to us at [phone] for Medicare purposes. For Medicare only, by signing this I certify the plan of care. Please let me know if there are questions or concerns regarding this plan of care. Physician Signature: Date:
--- NOTE | 2025-08-17 17:23 | HP.PTREVAL ---
Re-Evaluation Intro: Dr. Jeanna Turcios MD, It has been my pleasure to treat EDY CLEARY over the last 7 visits for N81.11 , N39.41. Please see the progress note below for an update on the physical therapy plan of care! Subjective Subjective: She is very happy with her progress and reports around 60% improvement overall in her symptoms. She no longer has pain with intercourse, has lessened her pad use and is not experiencing as much leaking. She still feels the bulging with the prolapse but she feels it is manageable with the pelvic floor exercises. Mild left abdominal soreness continues to the left of her umbilicus . She is no longer getting the catching, tightening pain anymore which is good. Objective Objective/Function: No change in her prolapse since starting PT but her pelvic floor tightness and strength has improved. Plan Plan Plan: Will follow up in September for final visit. Goals Goals Goal 1:: Edy will be able to cough or sneeze without leaking. 08/17/25 50-60% improved. Goal Time Frame: 8-12 Weeks Goal Progress: Progressing Goal 2:: Edy will be able to go thru day to day activities and not have to wear a pad. 08/17/25 60% improved. She went from wearing a thick pad to a pantiliner and only 1 a day. Goal Time Frame: 8-12 Weeks Goal Progress: Progressing Goal 3:: Edy will be able to tolerate vaginal penetration without pain with deep penetration. 08/17/25 Patient reports no penetration pain. Goal Time Frame: 8-12 Weeks Goal Progress: Goal Met Anticipated Interventions Anticipated Interventions Patient/Client Instruction: Educate patient on: Condition and Plan of Care For the Purpose of:: To decrease pain, To improve muscle performance and motor function, To improve health and function, To improve self management and To improve tolerance to ADL's Therapeutic Exercise to Include: Strength training For the Purpose of:: To improve muscle performance and motor function, To improve health and function and To improve self management Manual Therapy Techniques to Include: Trigger point massage, Mobilization and Soft tissue mobilization For the Purpose of:: To improve muscle performance and motor function and To improve self management Re-Evaluation Ending Re-evaluation ending: Please do not hesitate to contact me at [phone] by phone or if you have questions or concerns regarding this new plan of care! Sincerely, Christen Serrano
--- NOTE | 2025-09-22 14:22 | HP.PTDCSUM ---
Discharge Summary D/C summary: It has been my pleasure to treat EDY CLEARY referred by Dr. Jeanna Turcios MD, with the diagnosis of N81.11 , N39.41 for a total of 8 visit(s). Discharge Date: 09/22/25 Please see the following information for a summary of their discharge status. Subjective Subjective: She still has been careful with lifting as she can feel more pressure and bulging when she does those activities. Leaking has still been better by about 60%. Pain has been better with intercourse. She is happy with managing her prolapse conservatively with the pelvic floor exercises at this time. She feels ready for discharge and pleased with her results. Pain Left lumbar, groin: Pain Intensity (Out of 10): 2 Objective Objective/Function: She showed nice progress in PT reporting 60% improvement. Her leaking has improved and her cystocele at this time is manageable with conservative treatment and pelvic floor strengthening exercises. She has met her [place] [facility] potential and is ready for discharge. She was very pleasant and motivated in her treatments. Goals Goal 1:: Edy will be able to cough or sneeze without leaking. 09/22/25 60% improved. Goal Progress: Progressing Goal 2:: Edy will be able to go thru day to day activities and not have to wear a pad. 09/22/25 60% improved. She went from wearing a thick pad to a pantiliner and only 1 a day. Goal Progress: Progressing Goal 3:: Edy will be able to tolerate vaginal penetration without pain with deep penetration. 09/22/25 Patient reports no penetration pain. Goal Progress: Goal Met Plan Plan: D/C from PT and closing her chart. D/C Information Discharge Comments: She is being discharged from PT and she will continue the exercises on her own at home. She responded very well to PT. d/c sentence: If there are questions or concerns regarding this patient's physical therapy, please feel free to call me at [phone]. Thank you for the referral of this patient. Sincerely, Christen Serrano
== END 2025-09-22 19:00 | disposition home or self-care (01) ==
LOC: PT 11:30
PROVIDERS: PCP Family Medicine; Referring Provider Urology; Visit Provider Urology
DX: N81.11 Cystocele, midline (principal); N39.41 Urge incontinence; Z98.890 Other specified postprocedural states
CPT/HCPCS: 97110; 97112; 97140; 97162; 97530